=== PATIENT | female | born 1940 | race Hispanic/Latino ===

== ENCOUNTER 2016-11-05 14:54 | Inpatient (IN) | payer MEDICARE, SELFPAY ==
--- NOTE | 2016-11-05 15:49 | ED PDOC ---
HPI: SOB/CHF/COPD Time Seen by Provider: 11/05/16 15:16 Chief Complaint (Nursing): Shortness Of Breath History Per: Patient History/Exam Limitations: no limitations Onset/Duration Of Symptoms: Hrs (1) Current Symptoms Are (Timing): Gone Now Initiating Event: Exercising/Sports Quality: Tightness Exacerbating Factor(s): Exertion, Laying Flat, Coughing Current Respiratory Medications: Albuterol Severity: None Pain Scale Rating Of: 0 Associated Symptoms: Ankle/Leg Swelling. denies: Fever, Chills, Sweating, Chest Pain, Bloody Cough, Productive Cough, Leg/Calf Pain Additional History Per: Patient Additional Complaint(s): Pt c/o dyspnea [employer]. Pt was walking down the stairs 2 flights when she had SCOTT. She reports she does not walk on stairs due to limited mobility and COPD and uses cane. Pt denies any chest pain. She reports SCOTT and dyspnea on lying flat at night for last 3 weeks. No fevers. Reports dry cough. She reports chronic leg swelling that is the same. She reports that she had sleep study scheduled but she had none done yet. She was on the way to see her PCP Dr Allred today. Pt took her albuterol pump with some relief during last 3 weeks. She is not on oxygen at home. She also reports she had difficulty sleeping for last 3 weeks at night. Per family she had some memory problems for a long time but its getting worse for last 3 weeks. - Risk Factors PE Risk Factors: Neg: Extremity Immobilization/Fx, Previous DVT, Previous PE, CHF Past Medical History Reviewed: Historical Data, Nursing Documentation, Vital Signs Vital Signs: Last Vital Signs Temp 99.2 F 11/05/16 14:57 Pulse 74 11/05/16 15:55 Resp 18 11/05/16 15:26 BP 179/119 H 11/05/16 14:57 Pulse Ox 97 11/05/16 15:55 - Medical History PMH: Arthritis, Asthma, COPD, Diabetes, HTN, Hypothyroidism, Chronic Kidney Disease - Surgical History Surgical History: Appendectomy, Cholecystectomy - Family History Family History: States: No Known Family Hx - Home Medications Home Medications: Ambulatory Orders Medication Instructions Recorded Levothyroxine [Synthroid] 75 mg PO DAILY 03/24/16 Ramipril [Altace] 10 mg PO DAILY 03/24/16 Salmeterol Xinafoate/Fluticaso 2 puff INH BID 03/24/16 [Advair Hfa 115/21] Valsartan [Diovan] 320 mg PO DAILY 03/24/16 traMADol [Ultram] 100 mg PO QAM 03/24/16 Albuterol 0.083% [Albuterol 3 ml IH Q4H PRN #0 neb 03/27/16 Sulfate 3 Ml] Glipizide [Glipizide Xl] 5 mg PO DAILY 11/05/16 traMADol [Ultram] 50 mg PO BID PRN 11/05/16 - Allergies Allergies/Adverse Reactions: Allergies Allergy/AdvReac Type Severity Reaction Status Date / Time No Known Allergies Allergy Verified 03/24/16 11:39 Wells Criteria for PE - Wells Criteria for Pulmonary Embolism Clinical Signs and Symptoms of DVT: No P.E is #1 Diagnosis, or Equally Likely: No Heart Rate >100: No Immobilization at least 3 days;Surgery previous 4 weeks: No Previous, objectively diagnosed PE or DVT: No Hemoptysis: No Malignancy w/treatment within 6 months, or palliative: No Total Score: 0 Review of Systems ROS Statement: Except As Marked, All Systems Reviewed And Found Negative Physical Exam - Reviewed Nursing Documentation Reviewed: Yes Vital Signs Reviewed: Yes - Physical Exam Appears: Positive for: Non-toxic, No Acute Distress Head Exam: Positive for: ATRAUMATIC Skin: Positive for: Warm, Dry Eye Exam: Positive for: EOMI Neck: Positive for: Painless ROM, Supple Cardiovascular/Chest: Positive for: Regular Rate, Rhythm, Edema. Negative for: Tachycardia Respiratory: Positive for: Normal Breath Sounds. Negative for: Respiratory Distress Gastrointestinal/Abdominal: Positive for: Soft. Negative for: Tenderness Extremity: Positive for: Normal ROM, Swelling (bilateral lower leg swelling). Negative for: Tenderness, Calf Tenderness Neurologic/Psych: Positive for: Alert, Oriented - Laboratory Results Result Diagrams: 11/05/16 16:05 11/05/16 16:05 - ECG ECG: Positive for: Interpreted By Me, Viewed By Me ECG Rhythm: Positive for: Normal QRS, Normal ST Segment, Sinus Rhythm. Negative for: ST/T Changes Rate: 74 O2 Sat by Pulse Oximetry: 97 - Radiology X-Ray: Viewed By Me, Read By Radiologist X-Ray Interpretation: No Acute Disease, COPD Medical Decision Making Medical Decision Making: Dyspnea Diff include COPD exacerbation, CHF, ACS. Plan EKG CXR labs reassess Disposition - Clinical Impression Clinical Impression: COPD exacerbation - Patient ED Disposition Is Patient to be Admitted: Yes Discussed With Dr.: Charlie Mora Doctor Will See Patient In The: Hospital Counseled Patient/Family Regarding: Studies Performed, Diagnosis - Disposition Disposition Time: 18:00 Condition: FAIR - Pt Status Changed To: Hospital Disposition Of: Inpatient - Admit Certification Admit to Inpatient:: After my assessment, the patient will require hospitalization for at least two midnights. This is because of the severity of symptoms shown, intensity of services needed, and/or the medical risk in this patient being treated as an outpatient. - POA Present On Arrival: None
[2016-11-05 16:15] LABS: BASO % 0.3 % (0.0-2.0); EOS # 0.1 K/uL (0.0-0.7); EOS % 1.1 % (0.0-4.0); HEMATOCRIT 40.8 % (34.0-47.0); LYMPH # 1.1 K/uL (1.0-4.3); LYMPH % 16.3 % (20.0-40.0); MEAN CELL VOLUME 94.2 fl (81.0-99.0); MEAN CORPUSCULAR HEMOGLOBIN 29.7 pg (27.0-31.0); MEAN CORPUSCULAR HGB CONC 31.6 g/dL (33.0-37.0); MEAN PLATELET VOLUME 8.7 fl (7.2-11.7); MONO # 0.4 K/uL (0.0-0.8); MONO % 6.3 % (0.0-10.0); NEUT # 5.3 K/uL (1.8-7.0); RED CELL DISTRIBUTION WIDTH 16.1 % (11.5-14.5); WHITE BLOOD COUNT 6.9 K/uL (4.8-10.8)
[2016-11-05 16:24] LABS: ALB/GLOB RATIO 0.9 (1.0-2.1); ALKALINE PHOSPHATASE 63 U/L (38-126); ALT/SGPT 29 U/L (9-52); AST/SGOT 22 U/L (14-36); BILIRUBIN,TOTAL 0.8 mg/dl (0.2-1.3); BLOOD UREA NITROGEN 20 mg/dl (7-17); CALCIUM 8.7 mg/dL (8.4-10.2); CARBON DIOXIDE 38 mmol/L (22-30); CHLORIDE 101 mmol/L (98-107); GFR AFRICAN-AMERICAN > 60; GLUCOSE,RANDOM 100 mg/dL (65-105); POTASSIUM 3.8 MMOL/L (3.6-5.0); SODIUM 145 mmol/l (132-148); TOTAL PROTEIN 7.4 G/DL (6.3-8.2)
--- NOTE | 2016-11-05 17:02 | RAD ---
PROCEDURE: CHEST RADIOGRAPH, 1 VIEW HISTORY: Dyspnea and shortness of breath. COMPARISON: 03/24/2016 FINDINGS: LUNGS: Clear. PLEURA: No pneumothorax or pleural fluid seen. CARDIOVASCULAR: Cardiomegaly. No evidence of acute, significant cardiovascular disease. OSSEOUS STRUCTURES: No significant abnormalities. VISUALIZED UPPER ABDOMEN: Normal. OTHER FINDINGS: None. IMPRESSION: No active disease. No acute/significant interval changes.
[2016-11-05 17:10] LABS: ABG ALLEN TEST YES; ARTERIAL BLOOD GAS HCO3 34.7 mmol/L (21-28); ARTERIAL BLOOD GAS O2 CAPACITY 18.5 mL/dL (16-24); ARTERIAL BLOOD GAS PH 7.35 (7.35-7.45); ARTERIAL BLOOD GAS PO2 80 mm/Hg (80-100); ARTERIAL BLOOD HGB O2 SAT 91.2 % (95.0-98.0); CARBOXYHEMOGLOBIN 4.2 % (0.5-1.5); HHB 2.3 % (0.0-5.0); METHEMOGLOBIN 2.2 % (0.0-3.0)
[2016-11-05] MEDS ORDERED: Albuterol-Ipratrop 3 mg / 0.5 (3 ml) UD INH STA (17:12)
[2016-11-05] MEDS ORDERED: Albuterol 0.083% Inhal Sol (2.5 mg/3 mL) UD IH PRN (18:02)
[2016-11-05] MEDS ORDERED: Albuterol-Ipratrop 3 mg / 0.5 (3 ml) UD ONE (18:10)
[2016-11-05] MEDS: Albuterol-Ipratrop 3 mg / 0.5 (3 ml) UD INH SCH (21:32)
[2016-11-05] MEDS: methylPREDNISolone 40 MG in Sodium Chloride 0.9% 50 ML IVPB SCH (21:52)
[2016-11-05 22:39] VITALS: BMI 61.7
[2016-11-06] MEDS: Levothyroxine 75 MCG TAB PO SCH (05:52)
[2016-11-06 06:54] LABS: ALKALINE PHOSPHATASE 57 U/L (38-126); ALT/SGPT 30 U/L (9-52); AST/SGOT 18 U/L (14-36); BILIRUBIN,TOTAL 0.6 mg/dl (0.2-1.3); BLOOD UREA NITROGEN 17 mg/dl (7-17); CALCIUM 8.7 mg/dL (8.4-10.2); CARBON DIOXIDE 37 mmol/L (22-30); CHLORIDE 102 mmol/L (98-107); GFR AFRICAN-AMERICAN > 60; GLUCOSE,RANDOM 221 mg/dL (65-105); POTASSIUM 4.2 MMOL/L (3.6-5.0); SODIUM 144 mmol/l (132-148)
[2016-11-06 07:07] LABS: BASO % 0.1 % (0.0-2.0); HEMATOCRIT 40.5 % (34.0-47.0); LYMPH # 0.3 K/uL (1.0-4.3); LYMPH % 6.4 % (20.0-40.0); MEAN CELL VOLUME 94.4 fl (81.0-99.0); MEAN CORPUSCULAR HEMOGLOBIN 29.5 pg (27.0-31.0); MEAN CORPUSCULAR HGB CONC 31.2 g/dL (33.0-37.0); MEAN PLATELET VOLUME 8.6 fl (7.2-11.7); MONO % 0.9 % (0.0-10.0); NEUT # 4.6 K/uL (1.8-7.0); NEUT % 92.6 % (50.0-75.0); PLATELET COUNT 200 K/uL (130-400); RED CELL DISTRIBUTION WIDTH 15.7 % (11.5-14.5)
--- NOTE | 2016-11-06 07:29 | CP.PCM.HP ---
History of Present Illness - History of Present Illness History of Present Illness: pt admitted for copd exacerbation. no f/c, n/v/d. states that he has been sob for a couple weeks but yesterday when elevated went out and she was forced to walk down steps. at present pt is w/o dyspnea and is w/o pain. bw nad imaging noted, Present on Admission - Present on Admission Any Indicators Present on Admission: Yes History of Uncontrolled Diabetes: Yes Review of Systems - Respiratory Respiratory: As Per HPI, Cough, Wheezing, Chest Congestion Past Patient History - Infectious Disease Hx of Infectious Diseases: None - Past Medical History & Family History Past Medical History?: Yes - Past Social History Smoking Status: Current Some Days Smoker - CARDIAC Hx Hypertension: Yes - PULMONARY Hx Asthma: Yes Hx Chronic Obstructive Pulmonary Disease (COPD): Yes - NEUROLOGICAL Hx Neurological Disorder: No - HEENT Hx HEENT Problems: Yes - RENAL Hx Chronic Kidney Disease: Yes - ENDOCRINE/METABOLIC Hx Hypothyroidism: Yes - HEMATOLOGICAL/ONCOLOGICAL Hx Blood Disorders: No Hx Blood Transfusions: No - INTEGUMENTARY Hx Dermatological Problems: No - MUSCULOSKELETAL/RHEUMATOLOGICAL Hx Arthritis: Yes Hx Falls: Yes - GASTROINTESTINAL Hx Gastrointestinal Disorders: No - GENITOURINARY/GYNECOLOGICAL Hx Genitourinary Disorders: No - PSYCHIATRIC Hx Substance Use: No - SURGICAL HISTORY Hx Appendectomy: Yes Hx Cholecystectomy: Yes - ANESTHESIA Hx Anesthesia: Yes Hx Anesthesia Reactions: No Hx Malignant Hyperthermia: No Meds Allergies/Adverse Reactions: Allergies Allergy/AdvReac Type Severity Reaction Status Date / Time No Known Allergies Allergy Verified 03/24/16 11:39 Physical Exam - Constitutional Appears: Well, Non-toxic, No Acute Distress - Head Exam Head Exam: ATRAUMATIC, NORMAL INSPECTION, NORMOCEPHALIC - Eye Exam Eye Exam: EOMI, Normal appearance, PERRL Pupil Exam: NORMAL ACCOMODATION, PERRL - ENT Exam ENT Exam: Mucous Membranes Moist, Normal Exam - Neck Exam Neck exam: Positive for: Normal Inspection - Respiratory Exam Respiratory Exam: Wheezes, NORMAL BREATHING PATTERN - Cardiovascular Exam Cardiovascular Exam: REGULAR RHYTHM, RRR, +S1, +S2 - GI/Abdominal Exam GI & Abdominal Exam: Normal Bowel Sounds, Soft. absent: Tenderness - Extremities Exam Extremities exam: Positive for: full ROM, normal capillary refill, normal inspection, pedal pulses present - Back Exam Back exam: FULL ROM, NORMAL INSPECTION - Neurological Exam Neurological exam: Alert, CN II-XII Intact, Normal Gait, Oriented x3, Reflexes Normal - Psychiatric Exam Psychiatric exam: Normal Affect, Normal Mood - Skin Skin Exam: Dry, Intact, Normal Color, Warm Results - Vital Signs Recent Vital Signs: Last Vital Signs Temp 98.4 F 11/06/16 05:03 Pulse 86 11/06/16 05:03 Resp 18 11/06/16 05:03 BP 162/77 H 11/06/16 05:03 Pulse Ox 92 L 11/06/16 05:03 - Labs Result Diagrams: 11/06/16 05:15 11/06/16 05:15 Labs: Laboratory Results - last 24 hr 11/05/16 11/06/16 11/06/16 22:05 05:15 05:15 WBC 5.0 RBC 4.29 Hgb 12.6 Hct 40.5 MCV 94.4 MCH 29.5 MCHC 31.2 L RDW 15.7 H Plt Count 200 MPV 8.6 Neut % (Auto) 92.6 H Lymph % (Auto) 6.4 L [place] % (Auto) 0.9 Eos % (Auto) 0.0 Baso % (Auto) 0.1 Neut # 4.6 Lymph # 0.3 L [place] # 0.0 Eos # 0.0 Baso # 0.0 Sodium 144 Potassium 4.2 Chloride 102 Carbon Dioxide 37 H Anion Gap 9 L BUN 17 Creatinine 0.6 L Est GFR ( Amer) > 60 Est GFR (Non-Af Amer) > 60 POC Glucose (mg/dL) 255 H Random Glucose 221 H Calcium 8.7 Total Bilirubin 0.6 AST 18 ALT 30 Alkaline Phosphatase 57 Total Protein 7.0 Albumin 3.5 Globulin 3.5 Albumin/Globulin Ratio 1.0 11/06/16 05:27 WBC RBC Hgb Hct MCV MCH MCHC RDW Plt Count MPV Neut % (Auto) Lymph % (Auto) [place] % (Auto) Eos % (Auto) Baso % (Auto) Neut # Lymph # [place] # Eos # Baso # Sodium Potassium Chloride Carbon Dioxide Anion Gap BUN Creatinine Est GFR ( Amer) Est GFR (Non-Af Amer) POC Glucose (mg/dL) 226 H Random Glucose Calcium Total Bilirubin AST ALT Alkaline Phosphatase Total Protein Albumin Globulin Albumin/Globulin Ratio Assessment & Plan (1) COPD exacerbation Assessment and Plan: solumedrol duonebs home meds Status: Acute (2) DVT prophylaxis Assessment and Plan: scd and ahe hose ambulation lovenox Status: Acute (3) Diabetes mellitus type 2 in obese Assessment and Plan: home meds, fsbg, riss Status: Acute Decision To Admit - Pt Status Changed To: Hospital Disposition Of: Inpatient - Admit Certification Admit to Inpatient:: After my assessment, the patient will require hospitalization for at least two midnights. This is because of the severity of symptoms shown, intensity of services needed, and/or the medical risk in this patient being treated as an outpatient. - . Bed Request Type: Telemetry Admitting Physician: Elias Pascal
[2016-11-06] MEDS: Albuterol-Ipratrop 3 mg / 0.5 (3 ml) UD INH SCH ×4 (08:00→19:16)
[2016-11-06] MEDS: GlipiZIDE 5 mg SR Tab PO SCH (09:13)
[2016-11-06] MEDS: methylPREDNISolone 40 MG in Sodium Chloride 0.9% 50 ML IVPB SCH ×2 (09:15→20:53)
[2016-11-06] MEDS: Enoxaparin 40 mg Syringe SC SCH (09:30)
[2016-11-06 10:24] LABS: NEUTROPHIL 92 % (42-75); TOTAL CELLS COUNTED 100
[2016-11-06] MEDS: Insulin Regular 100 units/ml SC SCH ×3 (12:44→22:00)
[2016-11-06] MEDS: Pantoprazole 40 mg EC Tab PO SCH (16:49)
--- NOTE | 2016-11-07 00:05 | CARD ---
APPROVED REPORT EKG Measurement Heart [id number] <Conclusion> Normal sinus rhythm Normal ECG
[2016-11-07] MEDS: Levothyroxine 75 MCG TAB PO SCH (06:27)
[2016-11-07] MEDS: Insulin Regular 100 units/ml SC SCH ×4 (06:32→21:53)
[2016-11-07] MEDS: Albuterol-Ipratrop 3 mg / 0.5 (3 ml) UD INH SCH ×4 (07:30→19:28)
[2016-11-07 07:38] LABS: HEMATOCRIT 40.9 % (34.0-47.0); LYMPH # 0.6 K/uL (1.0-4.3); LYMPH % 6.3 % (20.0-40.0); MEAN CELL VOLUME 94.8 fl (81.0-99.0); MEAN CORPUSCULAR HEMOGLOBIN 30.1 pg (27.0-31.0); MEAN CORPUSCULAR HGB CONC 31.7 g/dL (33.0-37.0); MEAN PLATELET VOLUME 8.5 fl (7.2-11.7); MONO # 0.3 K/uL (0.0-0.8); MONO % 3.2 % (0.0-10.0); NEUT # 9.2 K/uL (1.8-7.0); NEUT % 90.5 % (50.0-75.0); NRBC % 0.1 % (0.0-0.0); PLATELET COUNT 236 K/uL (130-400); WHITE BLOOD COUNT 10.2 K/uL (4.8-10.8)
[2016-11-07 07:59] LABS: ALB/GLOB RATIO 1.1 (1.0-2.1); ALKALINE PHOSPHATASE 58 U/L (38-126); ALT/SGPT 33 U/L (9-52); AST/SGOT 27 U/L (14-36); BILIRUBIN,TOTAL 0.4 mg/dl (0.2-1.3); BLOOD UREA NITROGEN 27 mg/dl (7-17); CARBON DIOXIDE 37 mmol/L (22-30); CHLORIDE 100 mmol/L (98-107); GFR AFRICAN-AMERICAN > 60; GLUCOSE,RANDOM 182 mg/dL (65-105); POTASSIUM 4.4 MMOL/L (3.6-5.0); SODIUM 144 mmol/l (132-148); TOTAL PROTEIN 7.4 G/DL (6.3-8.2)
[2016-11-07 09:22] LABS: NEUTROPHIL 89 % (42-75); TOTAL CELLS COUNTED 100
[2016-11-07] MEDS: Pantoprazole 40 mg EC Tab PO SCH (09:29)
[2016-11-07] MEDS: methylPREDNISolone 40 MG in Sodium Chloride 0.9% 50 ML IVPB SCH ×2 (09:30→21:49)
[2016-11-07] MEDS: Enoxaparin 40 mg Syringe SC SCH (09:30)
[2016-11-07] MEDS: GlipiZIDE 5 mg SR Tab PO SCH (09:30)
--- NOTE | 2016-11-07 10:10 | CP.PCM.PN ---
Subjective - Date & Time of Evaluation Date of Evaluation: 11/07/16 Time of Evaluation: 10:08 - Subjective Subjective: doing well, in bed w/o distress. no f/c, n/v/d. bw noted. sleeping w/o snorous resps Objective - Vital Signs/Intake and Output Vital Signs (last 24 hours): Temp Pulse Resp BP Pulse Ox 98.2 F 75 18 111/56 L 95 11/07/16 08:19 11/07/16 08:19 11/07/16 08:19 11/07/16 09:29 11/07/16 08:19 - Medications Medications: Current Medications Albuterol Sulfate (Albuterol 0.083% Inhal Deena (2.5 Mg/3 Ml) Ud) 2.5 mg IH RQ4 PRN PRN Reason: Shortness of Breath Albuterol/Ipratropium (Duoneb 3 Mg/0.5 Mg (3 Ml) Ud) 3 ml INH RQID [facility] Last Admin: 11/07/16 07:30 Dose: 3 ml Enoxaparin Sodium (Lovenox) 40 mg SC DAILY KARLENE PRN Reason: Protocol Last Admin: 11/07/16 09:30 Dose: 40 mg Glipizide (Glucotrol Xl) 5 mg PO DAILY [facility] Last Admin: 11/07/16 09:30 Dose: 5 mg Methylprednisolone 40 mg/ (Sodium Chloride) 50 mls @ 100 mls/hr IVPB Q12 [facility] Last Admin: 11/07/16 09:30 Dose: 100 mls/hr Insulin Human Regular (Humulin R) 0 units SC ACHS KARLENE PRN Reason: Protocol Last Admin: 11/07/16 06:32 Dose: 3 units Levothyroxine Sodium (Synthroid) 75 mcg PO DAILY@0630 [facility] Last Admin: 11/07/16 06:27 Dose: 75 mcg Mupirocin (Bactroban Ointment) 1 applic TOP BID [facility] Last Admin: 11/07/16 09:31 Dose: 1 applic Pantoprazole Sodium (Protonix Ec Tab) 40 mg PO DAILY [facility] Last Admin: 11/07/16 09:29 Dose: 40 mg Ramipril (Altace) 10 mg PO DAILY [facility] Last Admin: 11/07/16 09:29 Dose: 10 mg Tramadol HCl (Ultram) 50 mg PO BID PRN PRN Reason: Pain, moderate (4-7) Last Admin: 11/07/16 06:31 Dose: 50 mg Valsartan (Diovan) 320 mg PO DAILY KARLENE Last Admin: 11/07/16 09:29 Dose: 320 mg - Labs Labs: 11/07/16 06:45 11/07/16 06:45 - Constitutional Appears: Well, Non-toxic, No Acute Distress - Head Exam Head Exam: ATRAUMATIC, NORMAL INSPECTION, NORMOCEPHALIC - Eye Exam Eye Exam: EOMI, Normal appearance, PERRL Pupil Exam: NORMAL ACCOMODATION, PERRL - ENT Exam ENT Exam: Mucous Membranes Moist, Normal Exam - Neck Exam Neck Exam: Full ROM, Normal Inspection. absent: Lymphadenopathy - Respiratory Exam Respiratory Exam: Clear to Ausculation Bilateral, Wheezes, NORMAL BREATHING PATTERN Additional comments: less wheezing w/ good air entry - Cardiovascular Exam Cardiovascular Exam: REGULAR RHYTHM, RRR, +S1, +S2. absent: Murmur - GI/Abdominal Exam GI & Abdominal Exam: Soft, Normal Bowel Sounds. absent: Tenderness - Extremities Exam Extremities Exam: Full ROM, Normal Capillary Refill, Normal Inspection. absent : Joint Swelling, Pedal Edema - Back Exam Back Exam: NORMAL INSPECTION - Neurological Exam Neurological Exam: Alert, Awake, CN II-XII Intact, Normal Gait, Oriented x3 - Psychiatric Exam Psychiatric exam: Normal Affect, Normal Mood - Skin Skin Exam: Dry, Intact, Normal Color, Warm Assessment and Plan (1) COPD exacerbation Status: Acute (2) DVT prophylaxis Status: Acute (3) Diabetes mellitus type 2 in obese Status: Acute - Assessment and Plan (Free Text) Assessment: 1) COPD exacerbation Assessment and Plan: solumedrol duonebs home meds Status: Acute (2) DVT prophylaxis Assessment and Plan: scd and ahe hose ambulation lovenox Status: Acute (3) Diabetes mellitus type 2 in obese Assessment and Plan: home meds, fsbg, riss Status: Acute
[2016-11-08] MEDS: Levothyroxine 75 MCG TAB PO SCH (06:29)
[2016-11-08] MEDS: Insulin Regular 100 units/ml SC SCH ×3 (06:31→16:27)
--- NOTE | 2016-11-08 07:14 | CP.PCM.PN ---
Subjective - Date & Time of Evaluation Date of Evaluation: 11/08/16 Time of Evaluation: 07:12 - Subjective Subjective: doing well, no distress. no f/c, n/v/d. still w/ dysonea on exertion and mild wheezing at rest. for ba today am labs noted Objective - Vital Signs/Intake and Output Vital Signs (last 24 hours): Temp Pulse Resp BP Pulse Ox 98.4 F 78 20 138/79 95 11/08/16 05:00 11/08/16 05:00 11/08/16 05:00 11/08/16 05:00 11/08/16 05:00 - Medications Medications: Current Medications Albuterol Sulfate (Albuterol 0.083% Inhal Deena (2.5 Mg/3 Ml) Ud) 2.5 mg IH RQ4 PRN PRN Reason: Shortness of Breath Albuterol/Ipratropium (Duoneb 3 Mg/0.5 Mg (3 Ml) Ud) 3 ml INH RQID [facility] Last Admin: 11/07/16 19:28 Dose: 3 ml Enoxaparin Sodium (Lovenox) 40 mg SC DAILY KARLENE PRN Reason: Protocol Last Admin: 11/07/16 09:30 Dose: 40 mg Glipizide (Glucotrol Xl) 5 mg PO DAILY [facility] Last Admin: 11/07/16 09:30 Dose: 5 mg Methylprednisolone 40 mg/ (Sodium Chloride) 50 mls @ 100 mls/hr IVPB Q12 [facility] Last Admin: 11/07/16 21:49 Dose: 100 mls/hr Insulin Human Regular (Humulin R) 0 units SC ACHS KARLENE PRN Reason: Protocol Last Admin: 11/08/16 06:31 Dose: 2 units Levothyroxine Sodium (Synthroid) 75 mcg PO DAILY@0630 [facility] Last Admin: 11/08/16 06:29 Dose: 75 mcg Mupirocin (Bactroban Ointment) 1 applic TOP BID [facility] Last Admin: 11/07/16 17:11 Dose: 1 applic Pantoprazole Sodium (Protonix Ec Tab) 40 mg PO DAILY [facility] Last Admin: 11/07/16 09:29 Dose: 40 mg Ramipril (Altace) 10 mg PO DAILY [facility] Last Admin: 11/07/16 09:29 Dose: 10 mg Tramadol HCl (Ultram) 50 mg PO BID PRN PRN Reason: Pain, moderate (4-7) Last Admin: 11/07/16 06:31 Dose: 50 mg Valsartan (Diovan) 320 mg PO DAILY KARLENE Last Admin: 11/07/16 09:29 Dose: 320 mg - Labs Labs: 11/07/16 06:45 11/07/16 06:45 - Constitutional Appears: Well, Non-toxic, No Acute Distress - Head Exam Head Exam: ATRAUMATIC, NORMAL INSPECTION, NORMOCEPHALIC - Eye Exam Eye Exam: EOMI, Normal appearance, PERRL Pupil Exam: NORMAL ACCOMODATION, PERRL - ENT Exam ENT Exam: Mucous Membranes Moist, Normal Exam - Neck Exam Neck Exam: Full ROM, Normal Inspection. absent: Lymphadenopathy - Respiratory Exam Respiratory Exam: Clear to Ausculation Bilateral, Wheezes, NORMAL BREATHING PATTERN Additional comments: good air entry - Cardiovascular Exam Cardiovascular Exam: REGULAR RHYTHM, RRR, +S1, +S2. absent: Murmur - GI/Abdominal Exam GI & Abdominal Exam: Soft, Normal Bowel Sounds. absent: Tenderness - Extremities Exam Extremities Exam: Full ROM, Normal Capillary Refill, Normal Inspection. absent : Joint Swelling, Pedal Edema - Back Exam Back Exam: NORMAL INSPECTION - Neurological Exam Neurological Exam: Alert, Awake, CN II-XII Intact, Normal Gait, Oriented x3 - Psychiatric Exam Psychiatric exam: Normal Affect, Normal Mood - Skin Skin Exam: Dry, Intact, Normal Color, Warm Assessment and Plan (1) COPD exacerbation Status: Acute (2) DVT prophylaxis Status: Acute (3) Diabetes mellitus type 2 in obese Status: Acute - Assessment and Plan (Free Text) Assessment: 1) COPD exacerbation-improving Assessment and Plan: solumedrol duonebs home meds Status: Acute (2) DVT prophylaxis Assessment and Plan: scd and ahe hose ambulation lovenox Status: Acute (3) Diabetes mellitus type 2 in obese-bmi 62.6 Assessment and Plan: home meds, fsbg, riss dietary control Status: Acute
[2016-11-08] MEDS: Albuterol-Ipratrop 3 mg / 0.5 (3 ml) UD INH SCH ×3 (07:52→15:17)
[2016-11-08] MEDS: Pantoprazole 40 mg EC Tab PO SCH (09:19)
[2016-11-08] MEDS: GlipiZIDE 5 mg SR Tab PO SCH (09:19)
[2016-11-08] MEDS: Enoxaparin 40 mg Syringe SC SCH (09:20)
[2016-11-08] MEDS: methylPREDNISolone 40 MG in Sodium Chloride 0.9% 50 ML IVPB SCH ×2 (09:20→20:56)
[2016-11-08 15:43] VITALS: RESP 20
--- NOTE | 2016-11-08 19:00 | CP.PCM.DIS ---
Provider - Provider Date of Admission: 11/05/16 18:02 Attending physician: Elias Pascal MD Primary care physician: Ping Allred MD Time Spent in preparation of Discharge (in minutes): 15 Diagnosis - Discharge Diagnosis (1) COPD exacerbation Status: Acute (2) DVT prophylaxis Status: Acute (3) Diabetes mellitus type 2 in obese Status: Acute Hospital Course - Lab Results Lab Results: Most Recent Lab Values WBC 10.2 K/uL (4.8-10.8) D 11/07/16 06:45 RBC 4.32 Mil/uL (3.80-5.20) 11/07/16 06:45 Hgb 13.0 g/dL (12.0-16.0) 11/07/16 06:45 Hct 40.9 % (34.0-47.0) 11/07/16 06:45 MCV 94.8 fl (81.0-99.0) 11/07/16 06:45 MCH 30.1 pg (27.0-31.0) 11/07/16 06:45 MCHC 31.7 g/dL (33.0-37.0) L 11/07/16 06:45 RDW 16.0 % (11.5-14.5) H 11/07/16 06:45 Plt Count 236 K/uL (130-400) 11/07/16 06:45 MPV 8.5 fl (7.2-11.7) 11/07/16 06:45 Neut % (Auto) 90.5 % (50.0-75.0) H 11/07/16 06:45 Lymph % (Auto) 6.3 % (20.0-40.0) L 11/07/16 06:45 [place] % (Auto) 3.2 % (0.0-10.0) 11/07/16 06:45 Eos % (Auto) 0.0 % (0.0-4.0) 11/07/16 06:45 Baso % (Auto) 0.0 % (0.0-2.0) 11/07/16 06:45 Neut # 9.2 K/uL (1.8-7.0) H 11/07/16 06:45 Lymph # 0.6 K/uL (1.0-4.3) L 11/07/16 06:45 [place] # 0.3 K/uL (0.0-0.8) 11/07/16 06:45 Eos # 0.0 K/uL (0.0-0.7) 11/07/16 06:45 Baso # 0.0 K/uL (0.0-0.2) 11/07/16 06:45 Neutrophils % (Manual) 89 % (42-75) H 11/07/16 06:45 Lymphocytes % (Manual) 7 % (20-50) L 11/07/16 06:45 Monocytes % (Manual) 4 % (0-10) 11/07/16 06:45 Platelet Estimate Normal (NORMAL) 11/07/16 06:45 Anisocytosis (manual) Slight 11/07/16 06:45 pCO2 76 mm/Hg (35-45) H* 11/05/16 17:01 pO2 80 mm/Hg (80-100) 11/05/16 17:01 HCO3 34.7 mmol/L (21-28) H 11/05/16 17:01 ABG pH 7.35 (7.35-7.45) 11/05/16 17:01 ABG Total CO2 44.3 mmol/L (22-28) H 11/05/16 17:01 ABG O2 Saturation 97.5 % (95-98) 11/05/16 17:01 ABG O2 Content 18.0 ML/dL (15-23) 11/05/16 17:01 ABG Base Excess 12.7 mmol/L (-2.0-3.0) H 11/05/16 17:01 ABG Hemoglobin 14.0 g/dL (11.7-17.4) 11/05/16 17:01 ABG Carboxyhemoglobin 4.2 % (0.5-1.5) H 11/05/16 17:01 POC ABG HHb (Measured) 2.3 % (0.0-5.0) 11/05/16 17:01 ABG Methemoglobin 2.2 % (0.0-3.0) 11/05/16 17:01 ABG O2 Capacity 18.5 mL/dL (16-24) 11/05/16 17:01 Rodger Test Yes 11/05/16 17:01 A-a O2 Difference 25.0 mm/Hg 11/05/16 17:01 Hgb O2 Saturation 91.2 % (95.0-98.0) L 11/05/16 17:01 FiO2 28.0 % 11/05/16 17:01 Crit Value Called To Jin armenta 11/05/16 17:01 Crit Value Called By Ms 11/05/16 17:01 Crit Value Read Back Y 11/05/16 17:01 Blood Gas Notified Time 1705 11/05/16 17:01 Sodium 144 mmol/l (132-148) 11/07/16 06:45 Potassium 4.4 MMOL/L (3.6-5.0) 11/07/16 06:45 Chloride 100 mmol/L (98-107) 11/07/16 06:45 Carbon Dioxide 37 mmol/L (22-30) H 11/07/16 06:45 Anion Gap 11 (10-20) 11/07/16 06:45 BUN 27 mg/dl (7-17) H 11/07/16 06:45 Creatinine 0.8 mg/dL (0.7-1.2) 11/07/16 06:45 Est GFR ( Amer) > 60 11/07/16 06:45 Est GFR (Non-Af Amer) > 60 11/07/16 06:45 POC Glucose (mg/dL) 157 mg/dL (65-110) H 11/08/16 16:14 Random Glucose 182 mg/dL (65-105) H 11/07/16 06:45 Calcium 9.0 mg/dL (8.4-10.2) 11/07/16 06:45 Total Bilirubin 0.4 mg/dl (0.2-1.3) 11/07/16 06:45 AST 27 U/L (14-36) 11/07/16 06:45 ALT 33 U/L (9-52) 11/07/16 06:45 Alkaline Phosphatase 58 U/L (38-126) 11/07/16 06:45 Troponin I 0.0740 ng/mL (0.00-0.120) 11/05/16 16:05 NT-Pro-B Natriuret Pep 698 pg/ml (0-900) 11/05/16 16:05 Total Protein 7.4 G/DL (6.3-8.2) 11/07/16 06:45 Albumin 3.8 g/dL (3.5-5.0) 11/07/16 06:45 Globulin 3.6 gm/dL (2.2-3.9) 11/07/16 06:45 Albumin/Globulin Ratio 1.1 (1.0-2.1) 11/07/16 06:45 Discharge Exam - Head Exam Head Exam: ATRAUMATIC, NORMAL INSPECTION, NORMOCEPHALIC Discharge Plan - Discharge Medications Prescriptions: methylPREDNISolone [Solu-MEDROL] 40 mg IV Q12 #8 ml - Follow Up Plan Condition: FAIR Disposition: REHAB FACILITY/REHAB UNIT Instructions: COPD (Chronic Obstructive Pulmonary Disease) (DC) Additional Instructions: Activity as tolerated. BIPAP setting IPAP 12, EPAP 6, FI02 35, RATE 18. Moderate carbohydrate diet. final dx copd exacerbation. no complaints. meds per med rec. rted prn. Referrals: Ping Allred MD [Primary Care Provider] -
[2016-11-08 19:13] VITALS: BP 132/89; PULSE 78; TEMP 99.5; O2SAT 94
== END 2016-11-08 21:15 | DRG 191 ==
LOC: H.ER 14:54 → H.ERHOLD 18:02 → H.TEL 21:15
PROVIDERS: ADMIT Family Medicine; ATTEND Family Medicine
DX: J44.1 Chronic obstructive pulmonary disease with (acute) exacerbation (principal); Z68.44 Body mass index [BMI] 60.0-69.9, adult; E11.22 Type 2 diabetes mellitus with diabetic chronic kidney disease; I12.9 Hypertensive chronic kidney disease with stage 1 through stage 4 chronic kidney disease, or unspecified chronic kidney disease; N18.9 Chronic kidney disease, unspecified; E66.9 Obesity, unspecified; E03.9 Hypothyroidism, unspecified; J45.909 Unspecified asthma, uncomplicated; M19.90 Unspecified osteoarthritis, unspecified site; F17.210 Nicotine dependence, cigarettes, uncomplicated

== ENCOUNTER 2018-04-25 15:17 | Inpatient (IN) | payer MEDICARE, BC ==
[2018-04-25 15:17] VITALS: BMI 61.7
--- NOTE | 2018-04-25 16:26 | ED PDOC ---
HPI: Influenza Time Seen by Provider: 04/25/18 16:24 Chief Complaint: Cough, Cold, Congestion Chief Complaint (Provider): CHF History Per: Patient, Family Exam Limitations: no limitations Have you had recent travel within the past 21 days to any of: No Additional complaint(s):: Pt presents to the ED complaining of shortness of breath and SCOTT for two days; she has a history of COPD and is still a smoker; history includes HTN, hyperlipidmia; she has bilateral 2/3+ pitting edema bilaterally. Pt denies other symptoms Past Medical History Reviewed: Historical Data, Nursing Documentation, Vital Signs Vital Signs: Last Vital Signs Temp 98.0 F 04/25/18 15:44 Pulse 77 04/25/18 15:44 Resp 20 04/25/18 15:44 BP 152/78 H 04/25/18 15:44 Pulse Ox 95 04/25/18 15:44 - Medical History PMH: Arthritis, Asthma, COPD, Diabetes, HTN, Hypothyroidism, Chronic Kidney Disease - Surgical History Surgical History: Appendectomy, Cholecystectomy - Family History Family History: States: Unknown Family Hx - Home Medications Home Medications: Ambulatory Orders Medication Instructions Recorded RX: Levothyroxine [Synthroid] 75 mg PO DAILY 03/24/16 RX: Ramipril [Altace] 10 mg PO DAILY 03/24/16 RX: Salmeterol Xinafoate/Fluticaso 2 puff INH BID 03/24/16 [Advair Hfa 115/21] RX: Valsartan [Diovan] 320 mg PO DAILY 03/24/16 RX: traMADol [Ultram] 100 mg PO QAM 03/24/16 RX: Albuterol 0.083% [Albuterol 3 ml IH Q4H PRN #0 neb 03/27/16 0.083% Inhal Deena (2.5 mg/3 ml) UD] RX: Glipizide [Glipizide Xl] 5 mg PO DAILY 11/05/16 RX: traMADol [Ultram] 50 mg PO BID PRN 11/05/16 RX: Albuterol/Ipratropium [Duoneb 3 ml INH RQID 11/08/16 3 mg/0.5 mg (3 ml) UD] RX: Enoxaparin [Lovenox] 40 mg SC DAILY syr 11/08/16 RX: Mupirocin 2% Ointment 1 applic TOP BID 11/08/16 [Bactroban Ointment] RX: Pantoprazole [Protonix EC Tab] 40 mg PO DAILY ect 11/08/16 methylPREDNISolone [Solu-MEDROL] 40 mg IV Q12 #8 ml 11/08/16 - Allergies Allergies/Adverse Reactions: Allergies Allergy/AdvReac Type Severity Reaction Status Date / Time No Known Allergies Allergy Verified 04/25/18 15:44 Review of Systems ROS Statement: Except As Marked, All Systems Reviewed And Found Negative Cardiovascular: Positive for: Edema Respiratory: Positive for: Shortness of Breath, SOB with Exertion, Wheezing Physical Exam - Reviewed Nursing Documentation Reviewed: Yes Vital Signs Reviewed: Yes - Physical Exam Appears: Positive for: Well, Non-toxic, No Acute Distress, Uncomfortable Head Exam: Positive for: ATRAUMATIC, NORMAL INSPECTION Skin: Positive for: Normal Color, Warm, Dry. Negative for: Diaphoresis, Pallor, Rash Eye Exam: Positive for: Normal appearance, EOMI, PERRL. Negative for: Nystagmus, Periorbital swelling, Periorbital tenderness Neck: Positive for: Normal, Painless ROM, Supple. Negative for: Decreased ROM Cardiovascular/Chest: Positive for: Regular Rate, Rhythm, Edema, Murmur Respiratory: Positive for: Decreased Breath Sounds, Rhonchi, Wheezing. Negative for: Accessory Muscle Use, Crackles Pulses-Carotid (L): 2+ Pulses-Carotid (R): 2+ Pulses-Radial (L): 2+ Pulses-Radial (R): 2+ Medical Decision Making Medical Decision Making: Suspect CHF based on history and symptoms BNP CMP CBC Trop CXR - significant cardiomegally (>2/3 heart to breadth) 21:26 CTA Chest FINDINGS: PULMONARY ARTERIES No evidence of central or segmental pulmonary embolism is seen. AORTA There is no evidence for aneurysm or dissection of the thoracic aorta. LUNGS Mild scattered upper lobe predominant cetrilobular emphysema is present. There is evidence for pulmonary venous congestion compatible with mild CHF. Pulmonary edema is seen. PLEURAL SPACES No pleural effusion seen. No pneumothorax evident. HEART The cardiac silhouette is enlarged. LYMPH NODES No lymphadenopathy is evident. BONES No focal osseous abnormality or acute fracture. UPPER ABDOMEN Small hiatal hernia is noted. IMPRESSION: 1. Mild scattered upper lobe predominant cetrilobular emphysema is present. 2. Small hiatal hernia is noted. 3. The cardiac silhouette is enlarged. 4. There is evidence for pulmonary venous congestion compatible with mild CHF. Pulmonary edema is seen. 5. No evidence of PE. - Laboratory Results Result Diagrams: 04/25/18 16:30 04/25/18 16:30 - ECG O2 Sat by Pulse Oximetry: 95 Disposition - Clinical Impression Clinical Impression: CHF (congestive heart failure), Pulmonary edema, Pulmonary congestion - Patient ED Disposition Is Patient to be Admitted: Yes Discussed With Dr.: Charlie Mora Doctor Will See Patient In The: Hospital Counseled Patient/Family Regarding: Studies Performed, Diagnosis, Need For Followup - Disposition Disposition Time: 22:58 Condition: STABLE Forms: [employer] (Tongan) - Pt Status Changed To: Hospital Disposition Of: Observation
[2018-04-25 17:18] LABS: BASO % 0.2 % (0.0-2.0); EOS # 0.1 K/uL (0.0-0.7); EOS % 1.1 % (0.0-4.0); HEMOGLOBIN 11.7 g/dL (12.0-16.0); LYMPH # 0.9 K/uL (1.0-4.3); LYMPH % 15.1 % (20.0-40.0); MEAN CELL VOLUME 94.6 fl (81.0-99.0); MEAN CORPUSCULAR HEMOGLOBIN 30.3 pg (27.0-31.0); MEAN CORPUSCULAR HGB CONC 32.1 g/dL (33.0-37.0); MEAN PLATELET VOLUME 9.1 fl (7.2-11.7); MONO # 0.4 K/uL (0.0-0.8); MONO % 7.3 % (0.0-10.0); NEUT # 4.4 K/uL (1.8-7.0); NEUT % 76.3 % (50.0-75.0); RBC 3.84 Mil/uL (3.80-5.20); WHITE BLOOD COUNT 5.8 K/uL (4.8-10.8)
[2018-04-25 17:32] LABS: ALBUMIN 3.6 g/dL (3.5-5.0); ALT/SGPT 18 U/L (9-52); AST/SGOT 19 U/L (14-36); BLOOD UREA NITROGEN 24 mg/dl (7-17); GFR NON-AFRICAN AMERICAN > 60
[2018-04-25 17:44] LABS: B-TYPE NATRIURETIC PEPTIDE 331 pg/ml (0-900)
--- NOTE | 2018-04-25 17:56 | RAD ---
Date of service: 04/25/2018 HISTORY: r/o cardiomeg COMPARISON: 11/05/2016 TECHNIQUE: Chest PA and lateral FINDINGS: LUNGS: No active pulmonary disease. PLEURA: No significant pleural effusion identified. No pneumothorax apparent. CARDIOVASCULAR: No aortic atherosclerotic calcification present. Cardiomegaly. No evidence of acute, significant cardiovascular disease. No pulmonary vascular congestion. OSSEOUS STRUCTURES: No significant abnormalities. VISUALIZED UPPER ABDOMEN: Normal. OTHER FINDINGS: None. IMPRESSION: No active disease. No significant interval change compared to the prior examination(s).
[2018-04-25] MEDS ORDERED: Iodixanol 320 MG/ML 100 ML BOTTLE IV ONE ×2 (18:51→20:12)
[2018-04-25] MEDS ORDERED: Sodium Chloride 0.9% 50 ML IV ONE (20:12)
--- NOTE | 2018-04-26 06:42 | CT ---
Date of service: 04/25/2018 PROCEDURE: CT Chest with contrast (Pulmonary Angiogram) HISTORY: r/o PE COMPARISON: None available. TECHNIQUE: Axial computed tomography images were obtained of the chest in the pulmonary arterial phase of enhancement. Coronal and sagittal reformatted images were created and reviewed. Intravenous contrast dose: Radiation dose: Total exam DLP = 662.45 mGy-cm. This CT exam was performed using one or more of the following dose reduction techniques: Automated exposure control, adjustment of the mA and/or kV according to patient size, and/or use of iterative reconstruction technique. FINDINGS: PULMONARY ARTERIES: Unremarkable. No pulmonary embolism. AORTA: No acute findings. No thoracic aortic aneurysm. No aortic atherosclerotic calcification or mural plaque present. LUNGS: Unremarkable. No nodule, mass or pulmonary consolidation. PLEURAL SPACES: Unremarkable. No effusion or pneumothorax. HEART: Unremarkable. No cardiomegaly. No significant pericardial effusion. LYMPH NODES: No lymphadenopathy. BONES, CHEST WALL: Unremarkable. No fracture or destructive lesion OTHER FINDINGS: Small hiatal hernia. IMPRESSION: Unremarkable CT pulmonary angiogram. No pulmonary embolus.
[2018-04-26 07:33] LABS: BASO % 0.2 % (0.0-2.0); EOS # 0.1 K/uL (0.0-0.7); EOS % 1.2 % (0.0-4.0); HEMOGLOBIN 11.4 g/dL (12.0-16.0); LYMPH # 0.9 K/uL (1.0-4.3); LYMPH % 15.7 % (20.0-40.0); MEAN CELL VOLUME 94.3 fl (81.0-99.0); MEAN CORPUSCULAR HEMOGLOBIN 30.4 pg (27.0-31.0); MEAN CORPUSCULAR HGB CONC 32.2 g/dL (33.0-37.0); MEAN PLATELET VOLUME 9.1 fl (7.2-11.7); MONO # 0.5 K/uL (0.0-0.8); MONO % 7.8 % (0.0-10.0); NEUT # 4.4 K/uL (1.8-7.0); NEUT % 75.1 % (50.0-75.0); NRBC % 0.1 % (0.0-0.0); RBC 3.76 Mil/uL (3.80-5.20); RED CELL DISTRIBUTION WIDTH 15.3 % (11.5-14.5); WHITE BLOOD COUNT 5.8 K/uL (4.8-10.8)
--- NOTE | 2018-04-26 07:37 | CP.PCM.HP ---
History of Present Illness - History of Present Illness History of Present Illness: pt doign well. no f/c, n/v/d. no dyspnea at present. comfortable on nasal o2. nsr on monitor admitted for chf exacerbation. states legs have been heavier than usualy. bw and imaging noted. trops noted pending cardio/echo Present on Admission - Present on Admission Any Indicators Present on Admission: No History of Uncontrolled Diabetes: No Review of Systems - Cardiovascular Cardiovascular: As Per HPI, Dyspnea on Exertion, Leg Edema Past Patient History - Infectious Disease Hx of Infectious Diseases: None - Past Medical History & Family History Past Medical History?: Yes - Past Social History Smoking Status: Current Some Days Smoker - CARDIAC Hx Hypertension: Yes - PULMONARY Hx Asthma: Yes Hx Chronic Obstructive Pulmonary Disease (COPD): Yes - NEUROLOGICAL Hx Neurological Disorder: No - HEENT Hx HEENT Problems: Yes - RENAL Hx Chronic Kidney Disease: Yes - ENDOCRINE/METABOLIC Hx Hypothyroidism: Yes - HEMATOLOGICAL/ONCOLOGICAL Hx Blood Disorders: No Hx Blood Transfusions: No - INTEGUMENTARY Hx Dermatological Problems: No - MUSCULOSKELETAL/RHEUMATOLOGICAL Hx Arthritis: Yes - GASTROINTESTINAL Hx Gastrointestinal Disorders: No - GENITOURINARY/GYNECOLOGICAL Hx Genitourinary Disorders: No - PSYCHIATRIC Hx Psychophysiologic Disorder: No Hx Substance Use: No - SURGICAL HISTORY Hx Appendectomy: Yes Hx Cholecystectomy: Yes - ANESTHESIA Hx Anesthesia: Yes Hx Anesthesia Reactions: No Hx Malignant Hyperthermia: No Meds Allergies/Adverse Reactions: Allergies Allergy/AdvReac Type Severity Reaction Status Date / Time No Known Allergies Allergy Verified 04/25/18 15:44 Physical Exam - Constitutional Appears: Well, Non-toxic, No Acute Distress - Head Exam Head Exam: ATRAUMATIC, NORMAL INSPECTION, NORMOCEPHALIC - Eye Exam Eye Exam: EOMI, Normal appearance, PERRL Pupil Exam: NORMAL ACCOMODATION, PERRL - ENT Exam ENT Exam: Mucous Membranes Moist, Normal Exam - Neck Exam Neck exam: Positive for: Normal Inspection - Respiratory Exam Respiratory Exam: Clear to Auscultation Bilateral, NORMAL BREATHING PATTERN - Cardiovascular Exam Cardiovascular Exam: REGULAR RHYTHM, RRR, +S1, +S2 - GI/Abdominal Exam GI & Abdominal Exam: Normal Bowel Sounds, Soft. absent: Tenderness - Extremities Exam Extremities exam: Positive for: full ROM, normal capillary refill, normal inspection, pedal edema, pedal pulses present - Back Exam Back exam: FULL ROM, NORMAL INSPECTION - Neurological Exam Neurological exam: Alert, CN II-XII Intact, Normal Gait, Oriented x3, Reflexes Normal - Psychiatric Exam Psychiatric exam: Normal Affect, Normal Mood - Skin Skin Exam: Dry, Intact, Normal Color, Warm Results - Vital Signs Recent Vital Signs: Last Vital Signs Temp 98 F 04/25/18 18:00 Pulse 76 04/25/18 18:00 Resp 17 04/25/18 18:00 BP 138/76 04/25/18 18:00 Pulse Ox 95 04/25/18 23:02 - Labs Result Diagrams: 04/26/18 06:45 04/26/18 06:45 Labs: Laboratory Results - last 24 hr 04/25/18 04/25/18 16:30 16:30 WBC 5.8 RBC 3.84 Hgb 11.7 L Hct 36.3 MCV 94.6 MCH 30.3 MCHC 32.1 L RDW 15.0 H Plt Count 176 MPV 9.1 Neut % (Auto) 76.3 H Lymph % (Auto) 15.1 L [place] % (Auto) 7.3 Eos % (Auto) 1.1 Baso % (Auto) 0.2 Neut # (Auto) 4.4 Lymph # (Auto) 0.9 L [place] # (Auto) 0.4 Eos # (Auto) 0.1 Baso # (Auto) 0.0 Sodium 142 Potassium 3.5 L Chloride 102 Carbon Dioxide 33 H Anion Gap 11 BUN 24 H Creatinine 0.7 Est GFR ( Amer) > 60 Est GFR (Non-Af Amer) > 60 Random Glucose 106 H Calcium 9.0 Total Bilirubin 0.6 AST 19 ALT 18 Alkaline Phosphatase 57 Troponin I 0.0140 NT-Pro-B Natriuret Pep 331 Total Protein 7.2 Albumin 3.6 Globulin 3.7 Albumin/Globulin Ratio 1.0 Assessment & Plan (1) CHF (congestive heart failure) Assessment and Plan: lasix given in er w/ good effect i/o echo carido trops o2 prn Status: Acute (2) DVT prophylaxis Assessment and Plan: scd and aehose lovenox if admitted over 24h Status: Acute (3) Diabetes mellitus type 2 in obese Assessment and Plan: riss, huber emeds, fsbg Status: Acute Decision To Admit - Pt Status Changed To: Hospital Disposition Of: Observation - . Bed Request Type: Telemetry Admitting Physician: Elias Pascal
[2018-04-26 08:06] LABS: ALBUMIN 3.4 g/dL (3.5-5.0); ALT/SGPT 25 U/L (9-52); AST/SGOT 21 U/L (14-36); BLOOD UREA NITROGEN 20 mg/dl (7-17); CALCIUM 8.8 mg/dL (8.4-10.2); GFR NON-AFRICAN AMERICAN > 60
[2018-04-26] MEDS: Levothyroxine 75 MCG TAB PO SCH (08:32)
[2018-04-26] MEDS: GlipiZIDE 5 mg SR Tab PO SCH (08:32)
[2018-04-26] MEDS ORDERED: Patient's Own Med (Ramipril [Altace] 10 MG) PO SCH (09:00)
[2018-04-26] MEDS ORDERED: FLUTICASONE IH SCH (09:00)
[2018-04-26] MEDS ORDERED: SALMETEROL IH SCH (09:00)
[2018-04-26] MEDS: Fluticasone-Salmeterol 250-50mcg Diskus IH SCH ×2 (09:35→21:30)
[2018-04-26] MEDS: Albuterol HFA 90 mcg/actuation (8 g) IH SCH ×4 (09:36→21:30)
--- NOTE | 2018-04-26 12:41 | CP.PCM.CON ---
History of Present Illness - History of Present Illness History of Present Illness: I was asked to see patient by Dr Capellan. Patient seen 04/26/18 1791 Patient is a 77 year old female with HTN, obesity and COPD who presents with dsypnea. Symptoms began 2 days ago while at rest. She was recently started on an inhaler fo COPD but it did not work. She denies chest pain. Review of Systems - Constitutional Constitutional: absent: As Per HPI, Anorexia, Chills, Daytime Sleepiness, Excessive Sweating, Fatigue, Fever, Frequent Falls, Headache, Increased Appetite, Lethargy, Malaise, Night Sweats, Snoring, Sleep Apnea, Weight Gain, Weight Loss, Weakness, Other - EENT Eyes: absent: As Per HPI, Blind Spots, Blurred Vision, Change in Vision, Decreased Night Vision, Diplopia, Discharge, Dry Eye, Exophthalmos, Floaters, Irritation, Itchy Eyes, Loss of Peripheral Vision, Pain, Photophobia, Requires Corrective Lenses, Sees Flashes, Spots in Vision, Tunnel Vision, Other Visual Disturbances, Loss of Vision, Other Ears: absent: As Per HPI, Decreased Hearing, Ear Discharge, Ear Pain, Tinnitus, Abnormal Hearing, Disequilibrium, Dizziness, Other Nose/Mouth/Throat: absent: As Per HPI, Epistaxis, Nasal Congestion, Nasal Discharge, Nasal Obstruction, Nasal Trauma, Nose Pain, Post Nasal Drip, Sinus Pain, Sinus Pressure, Bleeding Gums, Change in Voice, Dental Pain, Dry Mouth, Dysphagia, Halitosis, Hoarsness, Lip Swelling, Mouth Lesions, Mouth Pain, Odynophagia, Sore Throat, Throat Swelling, Tongue Swelling, Facial Pain, Neck Pain, Neck Mass, Other - Breasts Breasts: absent: As Per HPI, Change in Shape, Mass, Pain, Nipple Discharge, Nipple Inversion, Skin Changes, Swelling, Other - Cardiovascular Cardiovascular: absent: As Per HPI, Acrocyanosis, Chest Pain, Chest Pain at R est, Chest Pain with Activity, Claudication, Diaphoresis, Dyspnea, Dyspnea on Exertion, Edema, Irregular Heart Rhythm, Pain Radiating to Arm/Neck/Jaw, Leg Edema, Leg Ulcers, Lightheadedness, Orthopnea, Palpitations, Paroxysmal Nocturnal Dyspnea, Pedal Edema, Radiating Pain, Rapid Heart Rate, Slow Heart Rate, Syncope, Other - Respiratory Respiratory: Dyspnea, Dyspnea on Exertion - Gastrointestinal Gastrointestinal: absent: As Per HPI, Abdominal Pain, Belching, Bloating, Change in Bowel Habits, Change in Stool Character, Coffee Ground Emesis, Constipation, Cramping, Diarrhea, Dyspepsia, Dysphagia, Early Satiety, Excessive Flatus, Fecal Incontinence, Heartburn, Hematemesis, Hematochezia, Loose Stools, Melena, Nausea , Odynophagia, Temesmus, Vomiting, Other - Genitourinary Genitourinary: absent: As Per HPI, Change in Urinary Stream, Difficulty Urinating, Dysuria, Flank Pain, Hematuria, Pyuria, Nocturia, Urinary Incontinence, Urinary Frequency, Urinary Hesitance, Urinary Urgency, Voiding Freq/Small Amts, Freq UTI, Hx Renal/Bladder Calculi, Hx /Renal Surgery, Bladder Distension, Other - Musculoskeletal Musculoskeletal: absent: As Per HPI, Abnormal Gait, Arthralgias, Atrophy, Back Pain, Deformity, Joint Swelling, Limited Range of Motion, Loss of Height, Muscle Cramps, Muscle Weakness, Myalgias, Neck Pain, Numbness, Radiating Pain into Limb, Stiffness, Tingling, Other - Integumentary Integumentary: absent: As Per HPI, Acne, Alopecia, Bleeding Lesions, Change in Hair, Change in Nails, Change in Pigmentation, Changing Lesions, Dry Skin, Erythema, Furuncle, Hirsutism, Lesions, New Lesions, Non-Healing Lesions, Photosensitivity, Pruritus, Rash, Skin Pain, Skin Ulcer, Sores, Striae, Swell ing, Unusual Bruising, Wounds, Jaundice, Other - Neurological Neurological: absent: As Per HPI, Abnormal Gait, Abnormal Hearing, Abnormal Movements, Abnormal Speech, Behavioral Changes, Burning Sensations, Confusion, Convulsions, Disequilibrium, Dizziness, Numbness, Focal Weakness, Frequent Falls, Headaches, Lack of Coordination, Loss of Vision, Memory Loss, Paresthesias, Radicular Pain, Restless Legs, Sensory Deficit, Syncope, Tingling, Tremor, Vertigo, Weakness, Other Visual Disturbances, Other - Psychiatric Psychiatric: absent: As Per HPI, Abnormal Sleep Pattern, Anhedonia, Anxiety, Auditory Hallucinations, Behavioral Changes, Change in Appetite, Change in Libido, Confusion, Depression, Difficulty Concentrating, Hallucinations, Homicidal Ideation, Hopelessness, Irritability, Memory Loss, Mood Swings, Panic Attacks, Paranoia, Suicidal Ideation, Visual Hallucinations, Tactile Hallucinations, Other - Endocrine Endocrine: absent: As Per HPI, Change in Body Appearance, Change in Libido, Cold Intolorance, Deepening of Voice, Excessive Sweating, Fatigue, Flushing, Heat I ntolorance, Increase in Ring/Shoe/Hat Size, Palpitations, Polydipsia, Polyphagia, Polyuria, Other - Hematologic/Lymphatic Hematologic: absent: As Per HPI, Easy Bleeding, Easy Bruising, Lymphadenopathy, Other Past Patient History - Infectious Disease Hx of Infectious Diseases: None - Past Medical History & Family History Past Medical History?: Yes - Past Social History Smoking Status: Current Some Days Smoker - CARDIAC Hx Hypertension: Yes - PULMONARY Hx Asthma: Yes Hx Chronic Obstructive Pulmonary Disease (COPD): Yes - NEUROLOGICAL Hx Neurological Disorder: No - HEENT Hx HEENT Problems: Yes - RENAL Hx Chronic Kidney Disease: Yes - ENDOCRINE/METABOLIC Hx Hypothyroidism: Yes - HEMATOLOGICAL/ONCOLOGICAL Hx Blood Disorders: No Hx Blood Transfusions: No - INTEGUMENTARY Hx Dermatological Problems: No - MUSCULOSKELETAL/RHEUMATOLOGICAL Hx Arthritis: Yes - GASTROINTESTINAL Hx Gastrointestinal Disorders: No - GENITOURINARY/GYNECOLOGICAL Hx Genitourinary Disorders: No - PSYCHIATRIC Hx Psychophysiologic Disorder: No Hx Substance Use: No - SURGICAL HISTORY Hx Appendectomy: Yes Hx Cholecystectomy: Yes - ANESTHESIA Hx Anesthesia: Yes Hx Anesthesia Reactions: No Hx Malignant Hyperthermia: No Meds Allergies/Adverse Reactions: Allergies Allergy/AdvReac Type Severity Reaction Status Date / Time No Known Allergies Allergy Verified 04/25/18 15:44 - Medications Medications: Current Medications Albuterol (Ventolin Hfa 90 Mcg/Actuation (8 G)) 2 puff IH QID [facility] Last Admin: 04/26/18 09:36 Dose: 2 inhaler Aspirin (Aspirin Chewable) 81 mg PO DAILY [facility] Last Admin: 04/26/18 08:42 Dose: 81 mg Glipizide (Glucotrol Xl) 5 mg PO DAILY [facility] Last Admin: 04/26/18 08:32 Dose: 5 mg Levothyroxine Sodium (Synthroid) 75 mcg PO DAILY@0630 [facility] Last Admin: 04/26/18 08:32 Dose: 75 mcg Ramipril (Altace) 10 mg PO DAILY [facility] Last Admin: 04/26/18 08:33 Dose: 10 mg Fluticasone/Salmeterol (Advair Diskus 250/50) 1 puff IH Q12 [facility] Last Admin: 04/26/18 09:35 Dose: 1 inhaler Tramadol HCl (Ultram) 50 mg PO BID PRN PRN Reason: Pain, severe (8-10) Physical Exam - Constitutional Appears: Non-toxic - Head Exam Head Exam: NORMAL INSPECTION - Eye Exam Eye Exam: Normal appearance - ENT Exam ENT Exam: Mucous Membranes Moist - Neck Exam Neck exam: Positive for: Full Rom - Respiratory Exam Respiratory Exam: Decreased Breath Sounds - Cardiovascular Exam Cardiovascular Exam: REGULAR RHYTHM, Systolic Murmur - GI/Abdominal Exam GI & Abdominal Exam: Normal Bowel Sounds - Rectal Exam Rectal Exam: Deferred - Extremities Exam Extremities exam: Positive for: pedal edema - Back Exam Back exam: NORMAL INSPECTION - Neurological Exam Neurological exam: Alert, Oriented x3 - Psychiatric Exam Psychiatric exam: Normal Affect - Skin Skin Exam: Normal Color Results - Vital Signs Recent Vital Signs: Last Vital Signs Temp 98.5 F 04/26/18 10:14 Pulse 63 04/26/18 10:14 Resp 21 04/26/18 10:14 BP 133/64 04/26/18 10:14 Pulse Ox 95 04/26/18 10:14 - Labs Result Diagrams: 04/26/18 06:45 04/26/18 06:45 Labs: Laboratory Results - last 24 hr 04/25/18 04/25/18 04/26/18 16:30 16:30 06:45 WBC 5.8 5.8 RBC 3.84 3.76 L Hgb 11.7 L 11.4 L Hct 36.3 35.5 MCV 94.6 94.3 MCH 30.3 30.4 MCHC 32.1 L 32.2 L RDW 15.0 H 15.3 H Plt Count 176 175 MPV 9.1 9.1 Neut % (Auto) 76.3 H 75.1 H Lymph % (Auto) 15.1 L 15.7 L [place] % (Auto) 7.3 7.8 Eos % (Auto) 1.1 1.2 Baso % (Auto) 0.2 0.2 Neut # (Auto) 4.4 4.4 Lymph # (Auto) 0.9 L 0.9 L [place] # (Auto) 0.4 0.5 Eos # (Auto) 0.1 0.1 Baso # (Auto) 0.0 0.0 Sodium 142 Potassium 3.5 L Chloride 102 Carbon Dioxide 33 H Anion Gap 11 BUN 24 H Creatinine 0.7 Est GFR ( Amer) > 60 Est GFR (Non-Af Amer) > 60 POC Glucose (mg/dL) Random Glucose 106 H Calcium 9.0 Total Bilirubin 0.6 AST 19 ALT 18 Alkaline Phosphatase 57 Troponin I 0.0140 NT-Pro-B Natriuret Pep 331 Total Protein 7.2 Albumin 3.6 Globulin 3.7 Albumin/Globulin Ratio 1.0 04/26/18 04/26/18 06:45 07:14 WBC RBC Hgb Hct MCV MCH MCHC RDW Plt Count MPV Neut % (Auto) Lymph % (Auto) [place] % (Auto) Eos % (Auto) Baso % (Auto) Neut # (Auto) Lymph # (Auto) [place] # (Auto) Eos # (Auto) Baso # (Auto) Sodium 143 Potassium 3.7 Chloride 102 Carbon Dioxide 34 H Anion Gap 11 BUN 20 H Creatinine 0.7 Est GFR ( Amer) > 60 Est GFR (Non-Af Amer) > 60 POC Glucose (mg/dL) 80 Random Glucose 90 Calcium 8.8 Total Bilirubin 0.8 AST 21 ALT 25 Alkaline Phosphatase 55 Troponin I 0.0200 NT-Pro-B Natriuret Pep Total Protein 6.8 Albumin 3.4 L Globulin 3.5 Albumin/Globulin Ratio 1.0 - EKG Data EKG Interpreted by: Myself EKG shows normal: Sinus rhythm Assessment & Plan (1) Aortic stenosis Assessment and Plan: patient has mild aortic stenosis by echo. This is not contributing to her presentation. I discussed management of . can follow up as outpatient. Status: Acute (2) COPD exacerbation Assessment and Plan: likely cause of her presentation. medical therapy. Status: Acute
--- NOTE | 2018-04-26 23:02 | CARD ---
APPROVED REPORT Date of service: 04/25/2018 EKG Measurement Heart [id number] <Conclusion> Sinus rhythm with occasional premature atrial complexes Abnormal ECG
--- NOTE | 2018-04-26 23:33 | CARD ---
APPROVED REPORT Date of service: 04/26/2018 EXAM: Two-dimensional and M-mode echocardiogram with Doppler and color Doppler. Other Information Quality : FairRhythm : NSR Technically limited study due to body habitus.COPD INDICATION Congestive Heart Failure 2D DIMENSIONS IVSd1.28 (0.7-1.1cm)LVDd4.58 (3.9-5.9cm) LVOT Diameter1.95 (1.8-2.4cm)PWd1.13 (0.7-1.1cm) IVSs1.71 (0.8-1.2cm)LVDs3.30 (2.5-4.0cm) FS (%) 28.1 %PWs1.68 (0.8-1.2cm) M-Mode DIMENSIONS Left Atrium (MM)3.97 (2.5-4.0cm)IVSd1.32 (0.7-1.1cm) Aortic Root3.27 (2.2-3.7cm)LVDd4.41 (4.0-5.6cm) Aortic Cusp Exc.1.76 (1.5-2.0cm)PWd1.54 (0.7-1.1cm) IVSs1.84 cmFS (%) 42 % LVDs2.57 (2.0-3.8cm)PWs2.10 cm Aortic Valve AoV Peak Bhfbygwi209.4cm/sAoV VTI76.3cmAO Peak GR.47mmHg LVOT Peak Tdykpazq679.5cm/sLVOT VTI34.11cmAO Mean GR.26mmHg SERINA (VMAX)0.71be0DQJ (VTI)0.55cm2 Mitral Valve MV E Kyrqmfdl321.9cm/sMV DECEL NHXR042axBN A Gchnujdw93.3cm/s MV QRO56agD/A ratio1.3MVA (PHT)2.91cm2 TDI Lateral E' Peak V8.88cm/sMedial E' Peak V8.31cm/sE/Lateral E'13.4 E/Medial E'14.3 Tricuspid Valve TR Peak Oxkimslf462br/sRAP GURCACZQ34xdUpIE Peak Gr.29mmHg [id number] LEFT VENTRICLE The left ventricle is normal size. There is normal left ventricular wall thickness. The left ventricular systolic function is normal. The estimated ejection fraction is 55-60% No regional wall motion abnormalities noted.. Transmitral Doppler flow pattern is Grade II-pseudonormal filling dynamics. No left ventricle thrombus noted on this study. There is no ventricular septal defect visualized. There is no left ventricular aneurysm. There is no mass noted in the left ventricle. RIGHT VENTRICLE The right ventricle is normal size. There is normal right ventricular wall thickness. The right ventricular systolic function is normal. ATRIA The left atrium is borderline dilated. The right atrium size is normal. The interatrial septum is intact with no evidence for an atrial septal defect. AORTIC VALVE The aortic valve is calcified. No aortic regurgitation is present. There is moderate aortic valvular stenosis. Peak aortic velocity is calculated at 3.5 m/sec. Calculated AV area is 1.1 cm2. Correlate clinically. There is no aortic valvular vegetation. MITRAL VALVE The mitral valve is normal in structure. There is no evidence of mitral valve prolapse. There is no mitral valve stenosis. There is mild mitral valve regurgitation noted. TRICUSPID VALVE The tricuspid valve is normal in structure. There is mild tricuspid valve regurgitation noted. RVSP is calculated at 45 mm Hg. There is no tricuspid valve prolapse or vegetation. There is no tricuspid valve stenosis. PULMONIC VALVE The pulmonary valve is normal in structure. There is no pulmonic valvular regurgitation. There is no pulmonic valvular stenosis. GREAT VESSELS The aortic root is normal in size. The ascending aorta is normal in size. The pulmonary artery is normal. The IVC is dilated in size and collapses <50% with inspiration. PERICARDIAL EFFUSION There is no pericardial effusion. There is no pleural effusion. <Conclusion> Technically difficult study The estimated ejection fraction is 55-60% Transmitral Doppler flow pattern is Grade II-pseudonormal filling dynamics. The left atrium is borderline dilated. There is moderate aortic valvular stenosis. Peak aortic velocity is calculated at 3.5 m/sec. Calculated AV area is 1.1 cm2. Correlate clinically. There is mild mitral valve regurgitation noted. There is mild tricuspid valve regurgitation noted. RVSP is calculated at 45 mm Hg. The IVC is dilated in size and collapses <50% with inspiration.
[2018-04-27] MEDS: Albuterol-Ipratrop 3 mg / 0.5 (3 ml) UD INH SCH ×6 (00:28→19:40)
[2018-04-27] MEDS: Levothyroxine 75 MCG TAB PO SCH (06:50)
[2018-04-27] MEDS: Fluticasone-Salmeterol 250-50mcg Diskus IH SCH ×2 (08:49→21:15)
[2018-04-27] MEDS: Albuterol HFA 90 mcg/actuation (8 g) IH SCH ×4 (08:50→21:15)
[2018-04-27] MEDS: GlipiZIDE 5 mg SR Tab PO SCH (08:50)
--- NOTE | 2018-04-27 21:38 | CP.PCM.PN ---
Subjective - Date & Time of Evaluation Date of Evaluation: 04/27/18 Time of Evaluation: 21:37 - Subjective Subjective: pt doing well. less dyspnic and maintaining improved spo2 on ra. no fcnvd. glucose controlled. Objective - Vital Signs/Intake and Output Vital Signs (last 24 hours): Temp Pulse Resp BP Pulse Ox 98.4 F 69 18 137/77 93 L 04/27/18 19:35 04/27/18 20:32 04/27/18 19:35 04/27/18 19:35 04/27/18 19:35 - Medications Medications: Current Medications Albuterol (Ventolin Hfa 90 Mcg/Actuation (8 G)) 2 puff IH QID [facility] Last Admin: 04/27/18 21:15 Dose: 2 puff Albuterol/Ipratropium (Duoneb 3 Mg/0.5 Mg (3 Ml) Ud) 3 ml INH RQ4 [facility] Last Admin: 04/27/18 19:40 Dose: 3 ml Aspirin (Aspirin Chewable) 81 mg PO DAILY [facility] Last Admin: 04/27/18 08:49 Dose: 81 mg Glipizide (Glucotrol Xl) 5 mg PO DAILY [facility] Last Admin: 04/27/18 08:50 Dose: 5 mg Levothyroxine Sodium (Synthroid) 75 mcg PO DAILY@0630 [facility] Last Admin: 04/27/18 06:50 Dose: 75 mcg Ramipril (Altace) 10 mg PO DAILY [facility] Last Admin: 04/27/18 08:50 Dose: 10 mg Fluticasone/Salmeterol (Advair Diskus 250/50) 1 puff IH Q12 [facility] Last Admin: 04/27/18 21:15 Dose: 1 puff Tramadol HCl (Ultram) 50 mg PO BID PRN PRN Reason: Pain, severe (8-10) Last Admin: 04/27/18 04:08 Dose: 50 mg - Labs Labs: 04/26/18 06:45 04/26/18 06:45 - Constitutional Appears: Well, Non-toxic, No Acute Distress - Head Exam Head Exam: ATRAUMATIC, NORMAL INSPECTION, NORMOCEPHALIC - Eye Exam Eye Exam: EOMI, Normal appearance, PERRL Pupil Exam: NORMAL ACCOMODATION, PERRL - ENT Exam ENT Exam: Mucous Membranes Moist, Normal Exam - Neck Exam Neck Exam: Full ROM, Normal Inspection. absent: Lymphadenopathy - Respiratory Exam Respiratory Exam: Clear to Ausculation Bilateral, NORMAL BREATHING PATTERN - Cardiovascular Exam Cardiovascular Exam: REGULAR RHYTHM, RRR, +S1, +S2. absent: Murmur - GI/Abdominal Exam GI & Abdominal Exam: Soft, Normal Bowel Sounds. absent: Tenderness - Extremities Exam Extremities Exam: Full ROM, Normal Capillary Refill, Normal Inspection. absent: Joint Swelling, Pedal Edema - Back Exam Back Exam: NORMAL INSPECTION - Neurological Exam Neurological Exam: Alert, Awake, CN II-XII Intact, Normal Gait, Oriented x3 - Psychiatric Exam Psychiatric exam: Normal Affect, Normal Mood - Skin Skin Exam: Dry, Intact, Normal Color, Warm Assessment and Plan (1) CHF (congestive heart failure) Assessment & Plan: cardio lasix x 1 in ER Status: Acute (2) COPD exacerbation Assessment & Plan: huber jarrell emeds o2 prn, home o2? Status: Acute (3) DVT prophylaxis Assessment & Plan: scd and ae hose ambulation Status: Acute
[2018-04-28] MEDS: Albuterol-Ipratrop 3 mg / 0.5 (3 ml) UD INH SCH ×5 (00:30→16:25)
[2018-04-28 05:38] LABS: BASO % 0.1 % (0.0-2.0); EOS # 0.1 K/uL (0.0-0.7); EOS % 1.1 % (0.0-4.0); HEMOGLOBIN 11.1 g/dL (12.0-16.0); LYMPH % 18.9 % (20.0-40.0); MEAN CELL VOLUME 94.7 fl (81.0-99.0); MEAN CORPUSCULAR HEMOGLOBIN 30.9 pg (27.0-31.0); MEAN CORPUSCULAR HGB CONC 32.6 g/dL (33.0-37.0); MEAN PLATELET VOLUME 9.4 fl (7.2-11.7); MONO # 0.4 K/uL (0.0-0.8); MONO % 7.6 % (0.0-10.0); NEUT # 3.8 K/uL (1.8-7.0); NEUT % 72.3 % (50.0-75.0); RBC 3.59 Mil/uL (3.80-5.20); RED CELL DISTRIBUTION WIDTH 14.9 % (11.5-14.5); WHITE BLOOD COUNT 5.3 K/uL (4.8-10.8)
[2018-04-28] MEDS: Levothyroxine 75 MCG TAB PO SCH (05:48)
[2018-04-28 05:58] LABS: ALBUMIN 3.3 g/dL (3.5-5.0); ALT/SGPT 23 U/L (9-52); AST/SGOT 19 U/L (14-36); BLOOD UREA NITROGEN 25 mg/dl (7-17); CALCIUM 8.4 mg/dL (8.4-10.2); GFR NON-AFRICAN AMERICAN > 60
[2018-04-28 08:00] VITALS: RESP 18; O2SAT 95
[2018-04-28] MEDS: GlipiZIDE 5 mg SR Tab PO SCH (08:20)
[2018-04-28] MEDS: Fluticasone-Salmeterol 250-50mcg Diskus IH SCH (08:20)
[2018-04-28] MEDS: Albuterol HFA 90 mcg/actuation (8 g) IH SCH ×2 (08:21→12:29)
--- NOTE | 2018-04-28 09:30 | CP.PCM.DIS ---
Provider - Provider Date of Admission: 04/25/18 22:49 Attending physician: Elias Pascal MD Consults: 04/25/18 23:03 Cardiology Consult Stat Comment: Consulting Provider: Mary Kate Enciso Consulting Physician: Mary Kate Enciso Reason for Consult: chf Time Spent in preparation of Discharge (in minutes): 15 Diagnosis - Discharge Diagnosis (1) CHF (congestive heart failure) Status: Acute (2) DVT prophylaxis Status: Acute (3) Diabetes mellitus type 2 in obese Status: Acute Hospital Course - Lab Results Lab Results: Most Recent Lab Values WBC 5.3 K/uL (4.8-10.8) 04/28/18 04:25 RBC 3.59 Mil/uL (3.80-5.20) L 04/28/18 04:25 Hgb 11.1 g/dL (12.0-16.0) L 04/28/18 04:25 Hct 34.0 % (34.0-47.0) 04/28/18 04:25 MCV 94.7 fl (81.0-99.0) 04/28/18 04:25 MCH 30.9 pg (27.0-31.0) 04/28/18 04:25 MCHC 32.6 g/dL (33.0-37.0) L 04/28/18 04:25 RDW 14.9 % (11.5-14.5) H 04/28/18 04:25 Plt Count 161 K/uL (130-400) 04/28/18 04:25 MPV 9.4 fl (7.2-11.7) 04/28/18 04:25 Neut % (Auto) 72.3 % (50.0-75.0) 04/28/18 04:25 Lymph % (Auto) 18.9 % (20.0-40.0) L 04/28/18 04:25 [place] % (Auto) 7.6 % (0.0-10.0) 04/28/18 04:25 Eos % (Auto) 1.1 % (0.0-4.0) 04/28/18 04:25 Baso % (Auto) 0.1 % (0.0-2.0) 04/28/18 04:25 Neut # (Auto) 3.8 K/uL (1.8-7.0) 04/28/18 04:25 Lymph # (Auto) 1.0 K/uL (1.0-4.3) 04/28/18 04:25 [place] # (Auto) 0.4 K/uL (0.0-0.8) 04/28/18 04:25 Eos # (Auto) 0.1 K/uL (0.0-0.7) 04/28/18 04:25 Baso # (Auto) 0.0 K/uL (0.0-0.2) 04/28/18 04:25 Sodium 140 mmol/l (132-148) 04/28/18 04:25 Potassium 3.8 MMOL/L (3.6-5.0) 04/28/18 04:25 Chloride 99 mmol/L (98-107) 04/28/18 04:25 Carbon Dioxide 34 mmol/L (22-30) H 04/28/18 04:25 Anion Gap 11 (10-20) 04/28/18 04:25 BUN 25 mg/dl (7-17) H 04/28/18 04:25 Creatinine 0.7 mg/dl (0.7-1.2) 04/28/18 04:25 Est GFR ( Amer) > 60 04/28/18 04:25 Est GFR (Non-Af Amer) > 60 04/28/18 04:25 POC Glucose (mg/dL) 84 mg/dL (65-110) 04/28/18 05:17 Random Glucose 87 mg/dL (65-105) 04/28/18 04:25 Calcium 8.4 mg/dL (8.4-10.2) 04/28/18 04:25 Total Bilirubin 0.7 mg/dl (0.2-1.3) 04/28/18 04:25 AST 19 U/L (14-36) 04/28/18 04:25 ALT 23 U/L (9-52) 04/28/18 04:25 Alkaline Phosphatase 53 U/L (38-126) 04/28/18 04:25 Troponin I 0.0140 ng/mL (0.00-0.120) 04/26/18 21:06 NT-Pro-B Natriuret Pep 331 pg/ml (0-900) 04/25/18 16:30 Total Protein 6.8 G/DL (6.3-8.2) 04/28/18 04:25 Albumin 3.3 g/dL (3.5-5.0) L 04/28/18 04:25 Globulin 3.5 gm/dL (2.2-3.9) 04/28/18 04:25 Albumin/Globulin Ratio 1.0 (1.0-2.1) 04/28/18 04:25 - Hospital Course Hospital Course: cardio, echo, lasix duonebs o2 suportve care Discharge Exam - Head Exam Head Exam: ATRAUMATIC, NORMAL INSPECTION, NORMOCEPHALIC - Eye Exam Eye Exam: EOMI, Normal appearance, PERRL Pupil Exam: NORMAL ACCOMODATION, PERRL - Respiratory Exam Respiratory Exam: Clear to PA & Lateral, NORMAL BREATHING PATTERN, UNREMARKABLE - Cardiovascular Exam Cardiovascular Exam: REGULAR RHYTHM, RRR, +S1, +S2 - GI/Abdominal Exam GI & Abdominal Exam: Normal Bowel Sounds, Soft, Unremarkable - Extremities Exam Extremities exam: full ROM, normal capillary refill, normal inspection, pedal pulses present - Back Exam Back exam: FULL ROM - Neurological Exam Neurological exam: Alert, CN II-XII Intact, Normal Gait, Oriented x3, Reflexes Normal - Psychiatric Exam Psychiatric exam: Normal Affect, Normal Mood - Skin Skin Exam: Dry, Intact, Normal Color, Warm Discharge Plan - Follow Up Plan Condition: STABLE Disposition: HOME/ ROUTINE Additional Instructions: final dx-chf/copd exacerbation. doing well off o2 no f/c, n/v/d. bw noted. no complaints. for dc today f/u rmg 2 days, rted prn,med spe rmed rec
--- NOTE | 2018-04-28 11:34 | PQF ---
PROVIDER RESPONSE TEXT: Chf appears chroninc, systolic REVIEWER QUERY TEXT: Heart Failure Acuity and Type Congestive Heart Failure exacerbation is documented in the Medical Record. Cardiology consult: COPD exacerbation likely cause of her presentation. Please document the type and acuity (includes probable or suspected) of CHF Such as: Type: -- Combined systolic and diastolic (heart failure with reduced ejection fraction and diastolic) dysfu nction -- Diastolic (HFpEF) -- Systolic (HFrEF) -- Left heart failure -- Right heart failure -- Right heart failure due to left heart failure -- High output failure -- End stage heart failure -- Other, please specify Acuity: -- Acute -- Chronic -- Acute on chronic -- Other, please specify The patient's Clinical Indicators include: Presents with SOB, + pitting edema bilaterally 2-3+. + Smoker. CXR: No active disease, Pro BNP 331, ECHO: EF 55-60%, Transmitral Doppler flow pattern is Grade II pseudonormal filling dynamics, Moderate , Mild MR/TR ER: Lasix IV Query created by: Mia Mcleod on 04/28/2018 11:26 AM Electronically signed by: Charlie Mora APN 04/28/2018 11:30 AM
[2018-04-28 12:08] VITALS: BP 123/67; PULSE 70; TEMP 98
--- NOTE | 2018-04-28 12:19 | PQF ---
PROVIDER RESPONSE TEXT: no s/s ckd at present. will monitor as outpt REVIEWER QUERY TEXT: Kidney Disease, Chronic CKD Stage Chronic Kidney Disease (CKD) is documented in the Medical Record. The GFR is > 60. Creatinine 0.7. Pl ease clarify if the CRF is ruled in OR ruled out. If Ruled In please specify the disease stage (inclu mesha probable or suspected) Such as: -- Chronic kidney disease Stage 1 -- Chronic kidney disease Stage 2 -- Chronic kidney disease Stage 3 -- Chronic kidney disease Stage 4 -- Chronic kidney disease Stage 5 -- Chronic kidney disease Stage 5, requiring dialysis -- End Stage Renal Disease -- Other, please specify Stages are defined by the [employer] as follows: CKD Stage I GFR >= 90 ml / min per 1.73 m2 and persistent albuminuria CKD Stage 2 GFR between 60 and 89 with persistent albuminuria CKD Stage 3 GFR between 30 and 59 CKD Stage 4 GFR between 15 and 29 CKD Stage 5 GFR between <15 or End Stage Renal Disease The patient's Clinical Indicators include: History of CKD. BUN 24, 20, 25 Creatinine 0.7, 0.7, 0.7 GFR: >60 Query created by: Mia Mcleod on 04/28/2018 11:34 AM Electronically signed by: Charlie Mora APN 04/28/2018 12:16 PM
--- NOTE | 2018-04-28 14:24 | CP.PCM.PCO ---
Assessment/Plan - Assessment and Plan (Free Text) Assessment: Patient seen and examined Chronic COPD, 6 minute walk test performed. Patient desaturated to 85% on RA with ambulation. Has failed other therapies and will need home oxygen.
== END 2018-04-28 17:00 | disposition home health service (06) | DRG 191 ==
LOC: H.ER 15:17 → H.ERHOLD 22:49 → INTOOBSV 22:49 → OBSVTOIN 22:49 → UNDOADMOB 22:49 → H.TEL 04-26 18:41 → H.ERHOLD 04-26 18:41 → OBSVTOIN 04-27 21:46 → H.TEL 04-27 21:46 → H.ERHOLD 04-27 21:46
PROVIDERS: ADMIT Family Medicine; ATTEND Family Medicine
PROC: 3E0F73Z Introduction of Anti-inflammatory into Respiratory Tract, Via Natural or Artificial Opening (ICD-10-PCS; principal; 2018-04-26)
DX: J44.1 Chronic obstructive pulmonary disease with (acute) exacerbation (principal); Z68.43 Body mass index [BMI] 50.0-59.9, adult; I50.22 Chronic systolic (congestive) heart failure; I11.0 Hypertensive heart disease with heart failure; E66.9 Obesity, unspecified; I35.0 Nonrheumatic aortic (valve) stenosis; E03.9 Hypothyroidism, unspecified; E11.9 Type 2 diabetes mellitus without complications; M19.90 Unspecified osteoarthritis, unspecified site; F17.210 Nicotine dependence, cigarettes, uncomplicated

== ENCOUNTER 2018-05-21 16:15 | Emergency (ER) | payer MEDICARE, BC ==
[2018-05-21 16:15] VITALS: BMI 61.7
--- NOTE | 2018-05-21 17:46 | ED PDOC ---
Lower Extremity Pain/Injury Time Seen by Provider: 05/21/18 16:58 Chief Complaint (Nursing): Lower Extremity Problem/Injury Chief Complaint (Provider): redness and swelling to bilateral legs History Per: Patient History/Exam Limitations: no limitations Onset/Duration Of Symptoms: Days (x1 week) Current Symptoms Are (Timing): Still Present Additional Complaint(s): Sarah Agarwal is a 77 year old female, with a past medical history of diabetes, HTN and COPD, who presents to the emergency department accompanied by family member for evaluation of redness and swelling to bilateral legs ongoing for x1 week associated with a yellow discharge. Family member reports she has been cleaning and dressing the wound, she took a picture of her legs that shows a yellow discharge. Patient is not taking antibiotics. Per family member, patient ambulates with a walker and is on O2 at home. Patient denies any fever, chills, chest pain, shortness of breath or other medical complaints. PMD: Harvey Phelan Past Medical History Reviewed: Historical Data, Nursing Documentation, Vital Signs Vital Signs: Last Vital Signs Temp 98.4 F 05/21/18 16:40 Pulse 85 05/21/18 16:40 Resp 20 05/21/18 16:40 BP 163/84 H 05/21/18 16:40 Pulse Ox 95 05/21/18 16:40 - Medical History PMH: Arthritis, Asthma, COPD, Diabetes, HTN, Hypothyroidism, Chronic Kidney Disease - Surgical History Surgical History: Appendectomy, Cholecystectomy - Family History Family History: States: Unknown Family Hx - Home Medications Home Medications: Ambulatory Orders Medication Instructions Recorded traMADol [Ultram] 50 mg PO BID PRN 04/25/18 Albuterol Sulfate [Ventolin Hfa] 2 puff IH QID #5 hfa.aer.ad 04/28/18 Albuterol/Ipratropium [Duoneb 3 3 ml INH RQ4 #90 neb 04/28/18 mg/0.5 mg (3 ml) UD] Aspirin [Aspirin Chewable] 81 mg PO DAILY #0 chew 04/28/18 Glipizide [Glipizide Xl] 5 mg PO DAILY #30 tab.er.24 04/28/18 Levothyroxine [Synthroid] 0.075 mg PO DAILY #30 tab 04/28/18 Ramipril [Altace] 10 mg PO DAILY #30 cap 04/28/18 Salmeterol Xinafoate/Fluticaso 2 puff INH BID #1 inhaler 04/28/18 [Advair Hfa 115/21] - Allergies Allergies/Adverse Reactions: Allergies Allergy/AdvReac Type Severity Reaction Status Date / Time No Known Allergies Allergy Verified 05/21/18 16:40 Review of Systems ROS Statement: Except As Marked, All Systems Reviewed And Found Negative Constitutional: Negative for: Fever, Chills Cardiovascular: Negative for: Chest Pain Respiratory: Negative for: Shortness of Breath Skin: Positive for: Other (lower leg redness, swelling and discharge) Physical Exam - Reviewed Nursing Documentation Reviewed: Yes Vital Signs Reviewed: Yes - Physical Exam Appears: Positive for: No Acute Distress (morbidly obese) Head Exam: Positive for: ATRAUMATIC, NORMAL INSPECTION, NORMOCEPHALIC Skin: Positive for: Normal Color, Warm, Dry Eye Exam: Positive for: Normal appearance, EOMI, PERRL Neck: Positive for: Normal, Painless ROM Extremity: Positive for: Normal ROM (upper and lower extremities), Swelling (swelling and erythema of bilateral lower legs. Legs are bandaged but picture shown demonstrates what appears ulcers on skin with discharge ). Negative for: Deformity Neurologic/Psych: Positive for: Alert, Oriented. Negative for: Motor/Sensory Deficits - Laboratory Results Result Diagrams: 05/21/18 18:44 05/21/18 18:44 - ECG O2 Sat by Pulse Oximetry: 95 (RA) Pulse Ox Interpretation: Normal - Progress Re-evaluation Time: 23:01 Condition: Re-examined, Improved Medical Decision Making Medical Decision Making: Time: 16:58 Initial Impression: leg swelling and possible infection. Differential includes cellulitis, stasis dermatitis w/ diabetic ulcers Initial Plan: --BMP --CBC w/ differential --ESR --Wound culture --Reevaluation 20:55 Patient was originally for her cellulitis. However, as patient was about to be discharged patient remembered she ran out of oxygen. Scribe Attestation: Documented by Juan Desai, acting as a scribe for Elieser Gusman MD Provider Scribe Attestation: All medical record entries made by the Scribe were at my direction and person ally dictated by me. I have reviewed the chart and agree that the record accurately reflects my personal performance of the history, physical exam, medical decision making, and the department course for this patient. I have also personally directed, reviewed, and agree with the discharge instructions and disposition. Disposition - Clinical Impression Clinical Impression: Stasis dermatitis, Leg edema - Patient ED Disposition Is Patient to be Admitted: No Doctor Will See Patient In The: Office Counseled Patient/Family Regarding: Studies Performed, Diagnosis, Need For Followup - Disposition Referrals: Charlie Oneil DPM [Medical Doctor] - Disposition: Routine/Home Disposition Time: 23:02 Condition: GOOD Additional Instructions: SARAH AGARWAL, thank you for letting us take care of you today. Your provider was Elieser Gusman MD and you were treated for B/L LEG PAIN. The emergency medical care you received today was directed at your acute symptoms. If you were prescribed any medication, please fill it and take as directed. It may take several days for your symptoms to resolve. Return to the Emergency Department if your symptoms worsen, do not improve, or if you have any other problems. Please contact your doctor or call one of the physicians/clinics you have been referred to that are listed on the Patient Visit Information form that is included in your discharge packet. Bring any paperwork you were given at discharge with you along with any medications you are taking to your follow up visit. Our treatment cannot replace ongoing medical care by a primary care pr ovider outside of the emergency department. Thank you for allowing the [facility] team to be part of your care today. If you had an X-Ray or CT scan: A Radiologist will review the ED reading if any change in treatment is needed we will contact you. If you had a blood, urine, or wound culture: It will take several days for the results, if any change in treatment is needed we will contact you. If you had an STI test: It will take 48 hours for the results. Please call after 1 week if you have not heard back. Instructions: Dependent Edema (DC), Dermatitis, Diabetic Foot Ulcer (DC)
[2018-05-21 18:49] LABS: BASO % 0.4 % (0.0-2.0); EOS # 0.1 K/uL (0.0-0.7); EOS % 1.4 % (0.0-4.0); HEMOGLOBIN 10.8 g/dL (12.0-16.0); LYMPH % 13.5 % (20.0-40.0); MEAN CELL VOLUME 93.8 fl (81.0-99.0); MEAN CORPUSCULAR HEMOGLOBIN 30.1 pg (27.0-31.0); MEAN CORPUSCULAR HGB CONC 32.1 g/dL (33.0-37.0); MEAN PLATELET VOLUME 8.7 fl (7.2-11.7); MONO # 0.4 K/uL (0.0-0.8); MONO % 5.7 % (0.0-10.0); NEUT # 5.7 K/uL (1.8-7.0); NRBC % 0.1 % (0.0-0.0); RBC 3.59 Mil/uL (3.80-5.20); RED CELL DISTRIBUTION WIDTH 14.6 % (11.5-14.5); WHITE BLOOD COUNT 7.2 K/uL (4.8-10.8)
[2018-05-21 18:56] LABS: BLOOD UREA NITROGEN 24 mg/dl (7-17); CALCIUM 8.8 mg/dL (8.4-10.2); GFR NON-AFRICAN AMERICAN > 60
[2018-05-21 20:20] VITALS: RESP 18
--- NOTE | 2018-05-21 20:24 | CP.PCM.CON ---
History of Present Illness - History of Present Illness History of Present Illness: Podiatry Consult Note - Dr. Mcdaniels 77 year old female patient PMHx DM2, HTN, COPD, and CHF seen and evaluated in ED concerning bilateral lower extremity pain and swelling. Daughters present at bedside who relay HPI. Per patient's daughters, patient has had swollen legs for the past few years however over the past week patient's legs became more swollen and noticed worsening drainage from wounds to the back of her legs. Patient has had a history of cellulitis and her daughers were concerned she may have it again now. Patient reports mild to moderate pain in both lower legs; states she spends the majority of her days sitting in a chair with her legs in a dependent position. Patient is mainly non-ambulatory. Patient denies recent nausea, vomiting, fever, chills, sob. Offers no other lower extremity complaints. Review of Systems - Review of Systems All systems: reviewed and no additional remarkable complaints except (as per HPI) Past Patient History - Infectious Disease Hx of Infectious Diseases: None - Past Medical History & Family History Past Medical History?: Yes - Past Social History Smoking Status: Former Smoker - CARDIAC Hx Hypertension: Yes - PULMONARY Hx Asthma: Yes Hx Chronic Obstructive Pulmonary Disease (COPD): Yes - NEUROLOGICAL Hx Neurological Disorder: No - HEENT Hx HEENT Problems: Yes Hx Deafness: Yes - RENAL Hx Chronic Kidney Disease: Yes - ENDOCRINE/METABOLIC Hx Hypothyroidism: Yes - HEMATOLOGICAL/ONCOLOGICAL Hx Blood Disorders: No Hx Blood Transfusions: No - INTEGUMENTARY Hx Dermatological Problems: No - MUSCULOSKELETAL/RHEUMATOLOGICAL Hx Arthritis: Yes - GASTROINTESTINAL Hx Gastrointestinal Disorders: No - GENITOURINARY/GYNECOLOGICAL Hx Genitourinary Disorders: No - PSYCHIATRIC Hx Psychophysiologic Disorder: No Hx Substance Use: No - SURGICAL HISTORY Hx Appendectomy: Yes Hx Cholecystectomy: Yes - ANESTHESIA Hx Anesthesia: Yes Hx Anesthesia Reactions: No Hx Malignant Hyperthermia: No Meds Home Medications: Home Medication List Medication Instructions Recorded Confirmed Type Cephalexin [cephalexin] 500 mg PO BID #20 cap 05/21/18 Rx Allergies/Adverse Reactions: Allergies Allergy/AdvReac Type Severity Reaction Status Date / Time No Known Allergies Allergy Verified 05/21/18 16:40 Physical Exam - Constitutional Appears: Non-toxic, No Acute Distress - Extremities Exam Additional comments: VASC: DP and PT pulses nonpalpable secondary to edema. +2 pitting edema noted to bilateral LE edema. Varicosities present. Temperature gradient warm to warm with no significant increase in warmth to areas of erythema. NEURO: Light touch and protective sensation diminished. DERM: Superficial wounds noted to posterior lower half of leg b/l - wounds noted to have a mixed fibrogranular/epithelializing base with macerated rim; serous drainage present; no purulence; no fluctuance; minimal malodor present. Erythema noted circumfirentially to lower 1/2 of leg b/l. ORTHO: Mild tenderness to palpation posterior leg wound b/l. No pain upon calf compression. - Neurological Exam Neurological exam: Alert, Oriented x3 - Psychiatric Exam Psychiatric exam: Normal Affect, Normal Mood Results - Vital Signs Recent Vital Signs: Last Vital Signs Temp 98.4 F 05/21/18 20:20 Pulse 73 05/21/18 20:20 Resp 18 05/21/18 20:20 BP 156/65 H 05/21/18 20:20 Pulse Ox 99 05/21/18 20:20 - Labs Result Diagrams: 05/21/18 18:44 05/21/18 18:44 Labs: Laboratory Results - last 24 hr 05/21/18 05/21/18 18:44 18:44 WBC 7.2 RBC 3.59 L Hgb 10.8 L Hct 33.7 L MCV 93.8 MCH 30.1 MCHC 32.1 L RDW 14.6 H Plt Count 166 MPV 8.7 Neut % (Auto) 79.0 H Lymph % (Auto) 13.5 L [place] % (Auto) 5.7 Eos % (Auto) 1.4 Baso % (Auto) 0.4 Neut # (Auto) 5.7 Lymph # (Auto) 1.0 [place] # (Auto) 0.4 Eos # (Auto) 0.1 Baso # (Auto) 0.0 ESR Cancelled Sodium 140 Potassium 4.3 Chloride 96 L Carbon Dioxide 35 H Anion Gap 13 BUN 24 H Creatinine 0.8 Est GFR ( Amer) > 60 Est GFR (Non-Af Amer) > 60 Random Glucose 89 Calcium 8.8 Assessment & Plan - Assessment and Plan (Free Text) Assessment: 77F with venous stasis ulcerations 2/2 PVD, non-infected Plan: Patient seen and evaluated. Discussed with attending, Dr. Arslan RITCHIE, WBC 7.2 ESR pending Wounds appear stable at this time - weeping + edema 2/2 PVD, CHF 1x dose of Vancomycin/Zosyn given in ED Wounds cleansed with saline and dressed with xeroform, DSD Advised patient to keep dressings clean/dry/intact until wound care appointment Advised patient to follow up in [facility], referral given for Dr. Thad Wolf for dc per podiatry Thank you for the consult
[2018-05-21] MEDS ORDERED: Piperacillin/Tazobact 3.375 GM in Sodium Chloride 0.9% 100 ML IVPB STA (20:39)
[2018-05-21] MEDS ORDERED: Piperacillin/Tazobact 3.375 gm Inj IVPB ONE (20:42)
[2018-05-21] MEDS ORDERED: Vancomycin 1 g Inj ONE (20:43)
[2018-05-22 01:40] VITALS: BP 152/68; PULSE 82; TEMP 98.7; O2SAT 96
== END 2018-05-21 23:50 | disposition home or self-care (01) ==
LOC: H.ER 16:15
DX: I87.2 Venous insufficiency (chronic) (peripheral) (principal); R60.0 Localized edema; I12.9 Hypertensive chronic kidney disease with stage 1 through stage 4 chronic kidney disease, or unspecified chronic kidney disease; E11.51 Type 2 diabetes mellitus with diabetic peripheral angiopathy without gangrene; Z79.84 Long term (current) use of oral hypoglycemic drugs; Z87.891 Personal history of nicotine dependence; E11.22 Type 2 diabetes mellitus with diabetic chronic kidney disease; J44.9 Chronic obstructive pulmonary disease, unspecified; N18.9 Chronic kidney disease, unspecified; Z79.899 Other long term (current) drug therapy
CPT/HCPCS: 80048; 85025; 85651; 87070; 87181; 96365; 96367; 99285; J2543